=== PATIENT | male | born 1945 | race Two or more races ===

== ENCOUNTER 2020-07-09 16:31 | Inpatient (IN) | payer MEDICARE, OTHER ==
[~2020-07-09] VITALS: Ht 175.3 cm; Wt 67.0 kg
[2020-07-09] MEDS ORDERED: CASODEX50 MG ORAL (16:39)
[2020-07-09] MEDS ORDERED: GABAPENTIN400 MG ORAL (16:39)
[2020-07-09] MEDS ORDERED: ATORVASTATIN CA40 MG ORAL (16:39)
[2020-07-09] MEDS ORDERED: FLOMAX0.4 MG ORAL (16:39)
[2020-07-09] MEDS ORDERED: AMLODIPINE BESY10 MG ORAL (16:39)
[2020-07-09] MEDS ORDERED: SYNTHROID25 MCG ORAL (16:39)
[2020-07-09] MEDS ORDERED: PREDNISONE2.5 MG ORAL (16:39)
[2020-07-09] MEDS ORDERED: LISINOPRIL5 MG ORAL (16:39)
[2020-07-09] MEDS ORDERED: XARELTO10 MG ORAL (16:39)
[2020-07-09] MEDS ORDERED: OMEPRAZOLE40 M1 ORAL (16:39)
[2020-07-09 16:59] VITALS: BP 122/72
--- NOTE | 2020-07-09 17:00 | NUR ---
ED Nurse Note:pt. was BIBA from assist living with general weakness and not eating for 3 days, temp 99.8 rectal, skin is intact, VSS, pt. is responsive and A/Ox2, blood ,covid and urine sent to labs, pt. was placed on bus driver/monitor, given IV fluids
--- NOTE | 2020-07-09 17:11 | Emergency Room Report ---
History of Present Illness General Chief Complaint: Generalized Weakness Source: Patient Present Illness HPI This patient presents from assisted living facility. He has a history of metastatic prostate cancer per review of his face sheet from the assisted living facility. He has no specific complaints. However, he is unable to articulate a complicated history. However, he can answer yes or no questions. He is brought in by EMS who states he was brought in from an assisted living facility for generalized weakness for the past 4 days and not eating for the past 2 days. There are no other specific complaints. Allergies: Coded Allergies: No Known Allergies (Unverified , 07/09/20) COVID-19 Screening Contact w/high risk pt: No Experienced COVID-19 symptoms?: No COVID-19 Testing performed BUDDER: No Patient History Past Medical History: see triage record, HTN, other - Hypothyroid Social History: Denies: smoking, alcohol use, drug use Reviewed Nursing Documentation: PMH: Agreed; PSxH: Agreed Nursing Documentation-PMH Past Medical History: No History, Except For Hx Hypertension: Yes Hx Cancer: Yes - prostate CA, bph Hx Gastrointestinal Problems: Yes - GERD Hx Neurological Problems: Yes - paraplegia Review of Systems All Other Systems: negative except mentioned in HPI Physical Exam Vital Signs Date Time Temp Pulse Resp B/P (MAP) Pulse Ox O2 Delivery O2 Flow Rate FiO2 07/09/20 16:32 97.3 96 18 122/72 (89) 98 Room Air Sp02 EP Interpretation: reviewed, normal General Appearance: no apparent distress, alert, GCS 15, non-toxic, cachetic, Chronically Ill Head: normocephalic, atraumatic Eyes: bilateral eye normal inspection, bilateral eye PERRL ENT: hearing grossly normal, normal pharynx, no angioedema, normal voice Neck: normal inspection, full range of motion Respiratory: chest non-tender, lungs clear, normal breath sounds, no respiratory distress, no retraction, no accessory muscle use, speaking full sentences Cardiovascular #1: regular rate, rhythm, no edema Gastrointestinal: normal bowel sounds, soft, non-distended, no guarding, no rebound, tenderness - TTP over the Lower abdomen. Rectal: deferred Musculoskeletal: back normal, normal range of motion, gait/station normal, non-tender Neurologic: alert, responsive, other - PT communicates with hand motions. Psychiatric: mood/affect normal, no suicidal/homicidal ideation Medical Decision Making Diagnostic Impression: Primary Impression: Pyelonephritis Additional Impression: Hypokalemia ER Course This patient has known metastatic prostate cancer. He is cachectic and frail. He is found to have pyelonephritis and profound hypokalemia. The patient lives in an assisted care facility. I do not believe he could tolerate outpatient treatment. The patient has been not eating and cannot even tolerate oral potassium chloride here in the emergency department. He was given broad- spectrum antibiotics, IV potassium chloride and admitted for further evaluation and treatment. This patient was evaluated in the context of the global COVID-19 pandemic, which necessitated consideration that the patient might be at risk for infection with the [id number] virus that causes COVID-19. Institutional protocols and algorithms that pertain to the evaluation of patients at risk for COVID-19 and the state of rapid change based on information released by multiple regulatory bodies including the CDC and federal and state organizations. These policies and algorithms were followed during the patient's care in the ED. Laboratory Tests Test 07/09/20 17:20 07/09/20 18:35 White Blood Count 8.6 K/UL (4.8-10.8) Red Blood Count 4.49 M/UL (4.70-6.10) L Hemoglobin 13.5 G/DL (14.2-18.0) L Hematocrit 41.1 % (42.0-52.0) L Mean Corpuscular Volume 92 FL (80-99) Mean Corpuscular Hemoglobin 30.1 PG (27.0-31.0) Mean Corpuscular Hemoglobin Concent 32.9 G/DL (32.0-36.0) Red Cell Distribution Width 14.9 % (11.6-14.8) H Platelet Count 231 K/UL (150-450) Mean Platelet Volume 6.9 FL (6.5-10.1) Neutrophils (%) (Auto) 77.9 % (45.0-75.0) H Lymphocytes (%) (Auto) 13.5 % (20.0-45.0) L Monocytes (%) (Auto) 7.9 % (1.0-10.0) Eosinophils (%) (Auto) 0.1 % (0.0-3.0) Basophils (%) (Auto) 0.7 % (0.0-2.0) D-Dimer 2.15 mg/L FEU (0.00-0.49) H Urine Color Yellow Urine Appearance Slightly cloudy Urine pH 5 (4.5-8.0) Urine Specific [place] 1.020 (1.005-1.035) Urine Protein 1+ (NEGATIVE) H Urine Glucose (UA) Negative (NEGATIVE) Urine Ketones Negative (NEGATIVE) Urine Blood 3+ (NEGATIVE) H Urine Nitrite Negative (NEGATIVE) Urine Bilirubin Negative (NEGATIVE) Urine Urobilinogen 1 MG/DL (0.0-1.0) H Urine Leukocyte Esterase 2+ (NEGATIVE) H Urine RBC 5-10 /HPF (0 - 0) H Urine WBC 20-30 /HPF (0 - 0) H Urine Squamous Epithelial Cells None /LPF (NONE/OCC) Urine Bacteria Moderate /HPF (NONE) H Sodium Level 144 MMOL/L (136-145) Potassium Level 2.4 MMOL/L (3.5-5.1) *L Chloride Level 105 MMOL/L (98-107) Carbon Dioxide Level 30 MMOL/L (21-32) Anion Gap 10 mmol/L (5-15) Blood Urea Nitrogen 14 mg/dL (7-18) Creatinine 1.0 MG/DL (0.55-1.30) Estimated Glomerular Filtration Rate > 60 mL/min (>60) Glucose Level 149 MG/DL (74-106) H Lactic Acid Level 3.20 mmol/L (0.4-2.0) H Pending Calcium Level 12.6 MG/DL (8.5-10.1) H Ferritin 2404 NG/ML (8-388) H Total Bilirubin 1.6 MG/DL (0.2-1.0) H Direct Bilirubin 0.6 MG/DL (0.0-0.3) H Aspartate Amino Transferase (AST) 137 U/L (15-37) H Alanine Aminotransferase (ALT) 34 U/L (12-78) Alkaline Phosphatase 186 U/L (46-116) H Lactate Dehydrogenase 395 U/L (81-234) H Total Creatine Kinase 233 U/L (26-308) Creatine Kinase MB 0.7 NG/ML (0.0-3.6) Creatine Kinase MB Relative Index 0.3 Troponin I 0.000 ng/mL (0.000-0.056) C-Reactive Protein, Quantitative 19.7 mg/dL (0.00-0.90) H Total Protein 6.4 G/DL (6.4-8.2) Albumin 2.8 G/DL (3.4-5.0) L Globulin 3.6 g/dL Albumin/Globulin Ratio 0.8 (1.0-2.7) L Thyroid Stimulating Hormone (TSH) 2.914 uiU/mL (0.358-3.740) Free Thyroxine 1.32 NG/DL (0.76-1.46) Microbiology Date/Time Source Procedure Growth Status 07/09/20 17:25 Nasopharynx SARS-CoV-2 RdRp Gene Assay - Final Complete EKG Diagnostic Results Rate: tachycardiac Rhythm: other - S.tachycardia Other Impression NSST findings. No comparison EKG available. Rhythm Strip Diag. Results EP Interpretation: yes Rate: 100's Rhythm: no PVC's, no ectopy, other - S.tachycardia Chest X-Ray Diagnostic Results Chest X-Ray Diagnostic Results : Chest X-Ray Ordered: Yes # of Views/Limited/Complete: 1 View Indication: Other EP Interpretation: Yes Interpretation: no consolidation, no effusion, no pneumothorax, no acute cardiopulmonary disease Impression: No acute disease Electronically Signed by: Valentina Bocanegra DO Last Vital Signs Date Time Temp Pulse Resp B/P (MAP) Pulse Ox O2 Delivery O2 Flow Rate FiO2 07/09/20 16:32 97.3 96 18 122/72 (89) 98 Room Air Disposition: ADMITTED INPATIENT Condition: Serious Valentina Bocanegra DO Jul 09, 2020 17:11
[2020-07-09 17:41] LABS: BASOPHILS % (AUTO) 0.7 % (0.0-2.0); EOSINOPHILS % (AUTO) 0.1 % (0.0-3.0); HEMATOCRIT 41.1 % (42.0-52.0); HEMOGLOBIN 13.5 G/DL (14.2-18.0); LYMPHOCYTES % (AUTO) 13.5 % (20.0-45.0); MEAN CORPUSCULAR VOLUME 92 FL (80-99); MONOCYTES % (AUTO) 7.9 % (1.0-10.0); NEUTROPHILS % (AUTO) 77.9 % (45.0-75.0); PLATELET COUNT 231 K/UL (150-450); RED BLOOD COUNT 4.49 M/UL (4.70-6.10); RED CELL DISTRIBUTION WIDTH 14.9 % (11.6-14.8); WHITE BLOOD COUNT 8.6 K/UL (4.8-10.8)
[2020-07-09 17:56] LABS: BILIRUBIN, URINE NEGATIVE (NEGATIVE); GLUCOSE, URINE (UA) NEGATIVE (NEGATIVE); KETONES,URINE NEGATIVE (NEGATIVE); LEUKOCYTE ESTERASE ,URINE 2+ (NEGATIVE); NITRITE,URINE NEGATIVE (NEGATIVE); PH,URINE 5 (4.5-8.0); PROTEIN,URINE 1+ (NEGATIVE); UROBILINOGEN,URINE 1 MG/DL (0.0-1.0)
[2020-07-09 18:06] LABS: COLOR,URINE YELLOW
[2020-07-09 18:07] LABS: APPEARANCE,URINE SLIGHTLY CLOUDY
[2020-07-09 18:11] LABS: ALANINE AMINOTRANSFERASE 34 U/L (12-78); ALBUMIN 2.8 G/DL (3.4-5.0); ALBUMIN/GLOBULIN RATIO 0.8 (1.0-2.7); ALKALINE PHOSPHATASE 186 U/L (46-116); ANION GAP 10 mmol/L (5-15); ASPARTATE AMINO TRANSFERASE 137 U/L (15-37); BILIRUBIN,TOTAL 1.6 MG/DL (0.2-1.0); BLOOD UREA NITROGEN 14 mg/dL (7-18); CALCIUM 12.6 MG/DL (8.5-10.1); CARBON DIOXIDE 30 MMOL/L (21-32); CHLORIDE 105 MMOL/L (98-107); CKMB 0.7 NG/ML (0.0-3.6); CREATINE KINASE 233 U/L (26-308); LACTATE DEHYDROGENASE 395 U/L (81-234); SODIUM 144 MMOL/L (136-145)
[2020-07-09 18:18] LABS: FERRITIN 2404 NG/ML (8-388); POTASSIUM 2.4 MMOL/L (3.5-5.1)
[2020-07-09 18:20] LABS: BILIRUBIN,DIRECT 0.6 MG/DL (0.0-0.3)
--- NOTE | 2020-07-09 18:22 | NUR ---
ED Nurse Note:called labs to draw lactic reflax, they said ok
[2020-07-09] MEDS ORDERED: Meropenem 1 GM in NS 55 ML IVPB ONE (18:45)
--- NOTE | 2020-07-09 19:10 | NUR ---
ED Nurse Note: Report received from LAURITA Morel. Patient is resting in bed, NAD noted. Breathing is normal and unlabored at this time. Safety measures met; will continue to monitor. VSS.
[2020-07-09 19:30] VITALS: BP 143/77
--- NOTE | 2020-07-09 20:00 | NUR ---
ED Nurse Note: Report given to LAURITA Olivarez.
[2020-07-09] MEDS ORDERED: Miralax 17gm pkt ORAL PRN (20:30)
[2020-07-09] MEDS ORDERED: Albuterol/Ipratropium 3ml neb HHN PRN (20:30)
--- NOTE | 2020-07-09 20:30 | NUR ---
ED Nurse Note: Patient is stable for transfer to tele unit at this time. He is awake and alert, breathing is normal at time of ED departure with stable vitals. Patient IVs are patent and intact. Patient taken to unit with IV potassium infusing and endorsed plan to LAURITA Olivarez. All belongings sent with patient. He is in no acute distress. Pt transferred to tele bed without complication.
--- NOTE | 2020-07-09 20:30 | NUR ---
NURSE NOTES: Report received from [place] ER nurse, Patient being admitted to [facility] for Pyelonephritis and hypokalemia. Patient is non ambulatory d/t paraplegia. Denies pain. Alert and oriented x 1 to 2 unable to understand what patient is saying at this time. Appears to have garbled speech and disoriented and confused. ER nurse states that Urine also positive for bacteria. Patient currently sinus tachy at 102 BPM. BP 118/68, Resp 22, Temp 97.8 O2Sat 97% on room air. Call light placed with in reach and provided instruction on fall precautions. Patient nods yes to demonstrate understanding. Bed at lowest position locked with side rails, bed alarm also activated. MRSA, VRE, CRE pending per ER nurse. Will contact Dr. Bonilla for further orders.
--- NOTE | 2020-07-09 20:53 | History & Physical ---
History and Physical History & Physicial job# [id number] Mark Bonilla MD Jul 09, 2020 20:53
[2020-07-09] MEDS ORDERED: Heparin 5000 units/ml inj SUBQ SCH (21:00)
--- NOTE | 2020-07-09 21:00 | NUR ---
Dr. Bonilla came to see patient and new admit orders noted and carried out. Continue all home medication except for Amlodipine d/t patient's BP stable and on other BP medication. Heparin DC since patient is taking anticoagulant daily. Will continue with plan of care.
[2020-07-09] MEDS: Cefepime HCl 2 GM in D5W 110 ML IV SCH (22:44)
[2020-07-09] MEDS: D5 1/2NS w/KCl 20mEq 1,000 ML IV SCH (22:44)
[2020-07-09] MEDS: Vancomycin 750 MG in NS 275 ML IVPB SCH (22:45)
[2020-07-10] VITALS: BP 118/75
--- NOTE | 2020-07-10 | History and Physical Report ---
DATE OF ADMISSION: 07/09/2020 CHIEF COMPLAINT: Altered mental status, severe weakness. HISTORY OF PRESENT ILLNESS: This is a 75-year-old gentleman with past medical history significant for metastatic prostate cancer, history of GERD, paraplegia, hypertension, BPH, hypothyroidism, and dyslipidemia, who presented to the emergency department from [facility] after he was noted to have generalized weakness for four days and decreased oral intake for two days. No fever, chills, nausea, vomiting, diarrhea, or constipation was reported. History is very limited secondary to the patient's status. The patient is not a good historian and answers questions yes or no, but in a slurred speech. The patient denies any headache or chest pain. Shortly after initial evaluation in the emergency department, the patient was noted to have a potassium of 2.4 and urinalysis, many bacteria, +2 leukocytes, and subsequently the patient was admitted to the hospital with hypokalemia and sepsis secondary to urinary tract infection. PAST MEDICAL HISTORY AND PAST SURGICAL HISTORY: As above, history of metastatic prostate cancer, history of gastroesophageal reflux disease, paraplegia, hypertension, BPH, hypothyroidism, and dyslipidemia. MEDICATIONS: Significant at the senior care significant for Norvasc 10 mg daily, atorvastatin 40 mg daily, Casodex 50 daily, gabapentin 400 mg four times a day, levothyroxine 50 mcg daily, lisinopril 10 mg daily, omeprazole 40 mg daily, prednisone 5 mg daily, Xarelto 20 mg p.o. daily, and Flomax 0.4 mg p.o. daily. ALLERGIES: No known drug allergies. SOCIAL HISTORY: No smoking, alcohol, or drugs at this time. Assisted living resident. FAMILY HISTORY: Noncontributory. REVIEW OF SYSTEMS: Very limited secondary to the patient's status. He is a poor historian. No fever or chills. No nausea or vomiting was reported. No bright red blood per rectum. No fall or head trauma. PHYSICAL EXAMINATION: VITAL SIGNS: On admission from the emergency department, temperature 97.3, pulse of 96, respirations 18, and blood pressure 122/72. GENERAL: The patient is awake and responsive, but very chronically ill-appearing. HEAD AND NECK: Pupils are equal and reactive to light. Extraocular movements are intact. Neck was supple. No JVD. LUNGS: Good air entry. No wheezing or rales. Decreased air in bases. Coarse breath sounds occasionally. ABDOMEN: Soft, nondistended, and nontender. Positive bowel sounds. EXTREMITIES: No cyanosis, clubbing or edema. NEUROLOGIC: Cranial nerves II through XII grossly intact. The patient is moving upper extremities. Lower extremities weaker 1/5 strength. SKIN: He has a tattoo on the upper extremity as well as trunk area. LABORATORY DATA: On admission from the emergency department, WBC of 8.6, hemoglobin 13, hematocrit 41, platelets 231,000. Sodium 144, potassium 2.4, chloride 105, bicarb 30, BUN 14, creatinine 1.0, GFR greater than 60. Glucose is 146. Lactic acid is 3.20, repeat one was 3.70. Calcium is 12.6. Ferritin . Total bilirubin of 1.6, direct bilirubin of 0.6, AST of 137, ALT of 34, alkaline phosphatase was 186. Lactate dehydrogenase is 395. Troponin is 0.00. TSH is 2.914, free T4 is 1.32. D-dimer is 2.15. UA is +1 protein, +3 blood, +2 leukocytes, 5 to 10 rbc, 20 to 30 wbc, moderate bacteria. COVID-19 test, rapid test is negative. ASSESSMENT: 1. Sepsis secondary to urinary tract infection. 2. Hypokalemia. 3. Severe dehydration and prerenal azotemia. 4. Metastatic prostate cancer. 5. Gastroesophageal reflux disease. 6. Paraplegia. 7. Hypertension. 8. BPH. 9. Hypothyroidism. 10. Dyslipidemia. PLAN: Admit the patient to the monitored unit. Continue laboratory as well as culture. Broad-spectrum antibiotic with vancomycin and cefepime. At this time, code status is Full Code. We will monitor lactic acid and we will start the patient on IV hydration. Mark Bonilla M.D. DR: JOHN JOB#: [id number] CC:
[2020-07-10 04:00] VITALS: BP 111/61
[2020-07-10 07:38] LABS: BASOPHILS % (AUTO) 0.3 % (0.0-2.0); EOSINOPHILS % (AUTO) 0.4 % (0.0-3.0); HEMATOCRIT 35.9 % (42.0-52.0); HEMOGLOBIN 11.9 G/DL (14.2-18.0); LYMPHOCYTES % (AUTO) 14.6 % (20.0-45.0); MEAN CORPUSCULAR VOLUME 92 FL (80-99); MONOCYTES % (AUTO) 8.2 % (1.0-10.0); NEUTROPHILS % (AUTO) 76.5 % (45.0-75.0); PLATELET COUNT 209 K/UL (150-450); RED BLOOD COUNT 3.91 M/UL (4.70-6.10); RED CELL DISTRIBUTION WIDTH 15.1 % (11.6-14.8); WHITE BLOOD COUNT 7.7 K/UL (4.8-10.8)
--- NOTE | 2020-07-10 07:41 | NUR ---
HAND-OFF: Report given to Clifford RN, Pt stable alert and oriented x2 to 3.
[2020-07-10 07:59] LABS: PHOSPHORUS 2.5 MG/DL (2.5-4.9)
[2020-07-10 08:00] VITALS: BP 108/70
[2020-07-10 08:09] LABS: ALANINE AMINOTRANSFERASE 27 U/L (12-78); ALBUMIN 2.4 G/DL (3.4-5.0); ALBUMIN/GLOBULIN RATIO 0.7 (1.0-2.7); ALKALINE PHOSPHATASE 155 U/L (46-116); ASPARTATE AMINO TRANSFERASE 133 U/L (15-37); BILIRUBIN,TOTAL 1.2 MG/DL (0.2-1.0); BLOOD UREA NITROGEN 13 mg/dL (7-18); CALCIUM 11.1 MG/DL (8.5-10.1); CARBON DIOXIDE 28 MMOL/L (21-32); CHLORIDE 109 MMOL/L (98-107); CREATININE 0.9 MG/DL (0.55-1.30); SODIUM 146 MMOL/L (136-145)
[2020-07-10 08:31] LABS: BILIRUBIN,DIRECT 0.4 MG/DL (0.0-0.3); POTASSIUM 2.5 MMOL/L (3.5-5.1)
[2020-07-10] MEDS: Lisinopril 10mg tab ORAL SCH (08:55)
[2020-07-10] MEDS: Xarelto 10mg tab ORAL SCH (08:55)
[2020-07-10] MEDS: Tamsulosin 0.4mg cap ORAL SCH (08:55)
[2020-07-10] MEDS: Cefepime HCl 2 GM in D5W 110 ML IV SCH ×2 (08:58→21:00)
[2020-07-10] MEDS: Bicalutamide 50mg tab ORAL SCH (08:58)
[2020-07-10] MEDS: Vancomycin 750 MG in NS 275 ML IVPB SCH ×2 (10:00→22:00)
--- NOTE | 2020-07-10 11:19 | NUR ---
NURSE NOTES: Received patient in bed. Awake, Alert to self. On room air, respirations unlabored. Patient denies pain. Heart monitor on. IV in the Right wrist and Left wrist, infusing IVF as ordered. Patient is a high fall risk d/t Roche fall score of 55. Patient placed close to the nurse's station for safety and close monitoring, yellow gown on, yellow socks on, bed alarm placed on high sensitivity, side rails up x2, bed at the lowest position. Call light within reach - unable to return demonstration. CN and DIRECTOR OF ALUMNI RELATIONS made aware.
--- NOTE | 2020-07-10 11:26 | NUR ---
NURSE NOTES: Received a call from Harika from [facility]. RN informed that GPS tracker on patient's ankle is low on battery. Tracker needs to be charged and a foam charger will be brought. [phone].
[2020-07-10] MEDS: D5 1/2NS w/KCl 20mEq 1,000 ML IV SCH (11:57)
[2020-07-10 12:00] VITALS: BP 137/67
--- NOTE | 2020-07-10 12:05 | NUR ---
NURSE NOTES: Patient refusing PO potassium. Patient is noncooperative. Attempted multiple times.
--- NOTE | 2020-07-10 12:32 | Consultation ---
History of Present Illness General Date patient seen: Jul 10, 2020 Chief Complaint: Generalized Weakness Present Illness HPI 75 y/o M with hx of HTN, BPH, GERD, HLD, paraplegia, hypothyroidism, metastatic Prostate CA, [facility] resident (Talisha Melvin) presented to ED on 07/09/20 with 4 days of weakness and not eating for 2 days Denied f/c, n/v/d, DELUCA, chest pain. Allergies: Coded Allergies: No Known Allergies (Unverified , 07/09/20) Medication History Scheduled Amlodipine Besylate* (Amlodipine Besylate*), 10 MG ORAL DAILY, (Reported) Atorvastatin Calcium* (Atorvastatin Calcium*), 40 MG ORAL BEDTIME, (Reported) Bicalutamide (Casodex), 50 MG ORAL DAILY, (Reported) Gabapentin* (Gabapentin*), 400 MG ORAL QID, (Reported) Levothyroxine Sodium* (Synthroid*), 50 MCG ORAL DAILY, (Reported) Lisinopril (Lisinopril*), 10 MG ORAL DAILY, (Reported) Omeprazole (Omeprazole), 40 MG ORAL DAILY, (Reported) Prednisone* (Prednisone*), 5 MG ORAL DAILY, (Reported) Rivaroxaban (Xarelto*), 20 MG ORAL DAILY, (Reported) Tamsulosin HCl (Flomax), 0.4 MG ORAL DAILY, (Reported) Patient History Healthcare decision maker N Resuscitation status Advanced Directive on File Patient History Narrative Pmhx: as above Shx: Denies: smoking, alcohol use, drug use Fhx: non contributory Review of Systems All Other Systems: negative except mentioned in HPI Physical Exam Physical Exam Narrative General Appearance: no apparent distress Head: normocephalic, atraumatic Eyes: bilateral eye normal inspection, bilateral eye PERRL ENT: hearing grossly normal, normal pharynx, no angioedema, normal voice Neck: normal inspection, full range of motion Respiratory: chest non-tender, lungs clear, normal breath sounds, no respiratory distress, no retraction, no accessory muscle use, speaking full sentences Cardiovascular #1: regular rate, rhythm, no edema Gastrointestinal: normal bowel sounds, soft, non-distended, no guarding, no rebound, tenderness - TTP over the Lower abdomen. Musculoskeletal: back normal, normal range of motion, gait/station normal, non- tender Last 24 Hour Vital Signs Date Time Temp Pulse Resp B/P (MAP) Pulse Ox O2 Delivery O2 Flow Rate FiO2 07/10/20 09:00 Room Air 07/10/20 08:55 108/70 07/10/20 08:00 99 07/10/20 08:00 96.4 97 20 108/70 (83) 97 07/10/20 04:00 97.7 93 22 111/61 (78) 97 07/10/20 04:00 92 07/10/20 00:00 90 07/10/20 00:00 97.7 101 22 118/75 (89) 97 07/09/20 22:59 Room Air 07/09/20 21:30 102 07/09/20 20:30 99.1 101 20 123/74 97 Room Air 07/09/20 19:30 99.8 106 18 143/77 96 Room Air 07/09/20 17:00 111 18 Room Air 07/09/20 16:59 99.8 111 18 122/72 98 Room Air 07/09/20 16:32 97.3 96 18 122/72 (89) 98 Room Air Intake and Output 07/09/20 07/10/20 19:00 07:00 Intake Total 400 ml Balance 400 ml Intake Other 400 ml # Voids 1 Laboratory Tests Test 07/09/20 17:20 07/09/20 18:35 07/10/20 06:01 White Blood Count 8.6 K/UL (4.8-10.8) 7.7 K/UL (4.8-10.8) Red Blood Count 4.49 M/UL (4.70-6.10) L 3.91 M/UL (4.70-6.10) L Hemoglobin 13.5 G/DL (14.2-18.0) L 11.9 G/DL (14.2-18.0) L Hematocrit 41.1 % (42.0-52.0) L 35.9 % (42.0-52.0) L Mean Corpuscular Volume 92 FL (80-99) 92 FL (80-99) Mean Corpuscular Hemoglobin 30.1 PG (27.0-31.0) 30.5 PG (27.0-31.0) Mean Corpuscular Hemoglobin Concent 32.9 G/DL (32.0-36.0) 33.2 G/DL (32.0-36.0) Red Cell Distribution Width 14.9 % (11.6-14.8) H 15.1 % (11.6-14.8) H Platelet Count 231 K/UL (150-450) 209 K/UL (150-450) Mean Platelet Volume 6.9 FL (6.5-10.1) 7.4 FL (6.5-10.1) Neutrophils (%) (Auto) 77.9 % (45.0-75.0) H 76.5 % (45.0-75.0) H Lymphocytes (%) (Auto) 13.5 % (20.0-45.0) L 14.6 % (20.0-45.0) L Monocytes (%) (Auto) 7.9 % (1.0-10.0) 8.2 % (1.0-10.0) Eosinophils (%) (Auto) 0.1 % (0.0-3.0) 0.4 % (0.0-3.0) Basophils (%) (Auto) 0.7 % (0.0-2.0) 0.3 % (0.0-2.0) D-Dimer 2.15 mg/L FEU (0.00-0.49) H Urine Color Yellow Urine Appearance Slightly cloudy Urine pH 5 (4.5-8.0) Urine Specific [place] 1.020 (1.005-1.035) Urine Protein 1+ (NEGATIVE) H Urine Glucose (UA) Negative (NEGATIVE) Urine Ketones Negative (NEGATIVE) Urine Blood 3+ (NEGATIVE) H Urine Nitrite Negative (NEGATIVE) Urine Bilirubin Negative (NEGATIVE) Urine Urobilinogen 1 MG/DL (0.0-1.0) H Urine Leukocyte Esterase 2+ (NEGATIVE) H Urine RBC 5-10 /HPF (0 - 0) H Urine WBC 20-30 /HPF (0 - 0) H Urine Squamous Epithelial Cells None /LPF (NONE/OCC) Urine Bacteria Moderate /HPF (NONE) H Sodium Level 144 MMOL/L (136-145) 146 MMOL/L (136-145) H Potassium Level 2.4 MMOL/L (3.5-5.1) *L 2.5 MMOL/L (3.5-5.1) *L Chloride Level 105 MMOL/L (98-107) 109 MMOL/L (98-107) H Carbon Dioxide Level 30 MMOL/L (21-32) 28 MMOL/L (21-32) Anion Gap 10 mmol/L (5-15) Blood Urea Nitrogen 14 mg/dL (7-18) 13 mg/dL (7-18) Creatinine 1.0 MG/DL (0.55-1.30) 0.9 MG/DL (0.55-1.30) Estimat Glomerular Filtration Rate > 60 mL/min (>60) > 60 mL/min (>60) Glucose Level 149 MG/DL (74-106) H 117 MG/DL (74-106) H Lactic Acid Level 3.20 mmol/L (0.4-2.0) H 3.70 mmol/L (0.66-2.22) H Calcium Level 12.6 MG/DL (8.5-10.1) H 11.1 MG/DL (8.5-10.1) H Ferritin 2404 NG/ML (8-388) H Total Bilirubin 1.6 MG/DL (0.2-1.0) H 1.2 MG/DL (0.2-1.0) H Direct Bilirubin 0.6 MG/DL (0.0-0.3) H 0.4 MG/DL (0.0-0.3) H Aspartate Amino Transf (AST/SGOT) 137 U/L (15-37) H 133 U/L (15-37) H Alanine Aminotransferase (ALT/SGPT) 34 U/L (12-78) 27 U/L (12-78) Alkaline Phosphatase 186 U/L (46-116) H 155 U/L (46-116) H Lactate Dehydrogenase 395 U/L (81-234) H Total Creatine Kinase 233 U/L (26-308) Creatine Kinase MB 0.7 NG/ML (0.0-3.6) Creatine Kinase MB Relative Index 0.3 Troponin I 0.000 ng/mL (0.000-0.056) 0.000 ng/mL (0.000-0.056) C-Reactive Protein, Quantitative 19.7 mg/dL (0.00-0.90) H Total Protein 6.4 G/DL (6.4-8.2) 5.7 G/DL (6.4-8.2) L Albumin 2.8 G/DL (3.4-5.0) L 2.4 G/DL (3.4-5.0) L Globulin 3.6 g/dL 3.3 g/dL Albumin/Globulin Ratio 0.8 (1.0-2.7) L 0.7 (1.0-2.7) L Thyroid Stimulating Hormone (TSH) 2.914 uiU/mL (0.358-3.740) Free Thyroxine 1.32 NG/DL (0.76-1.46) Phosphorus Level 2.5 MG/DL (2.5-4.9) Magnesium Level 1.8 MG/DL (1.8-2.4) Microbiology Date/Time Source Procedure Growth Status 07/09/20 19:00 Rectum Received 07/09/20 17:25 Nasopharynx SARS-CoV-2 RdRp Gene Assay - Final Complete Height (Feet): 5 Height (Inches): 9.00 Weight (Pounds): 149 Medications Current Medications Medications (Trade) Dose Ordered Sig/Anitra Route PRN Reason Start Time Stop Time Status Last Admin Dose Admin Acetaminophen (Tylenol) 650 mg Q4H PRN ORAL fever 07/09/20 20:30 08/08/20 20:29 Albuterol/ Ipratropium (Albuterol/ Ipratropium) 3 ml Q4H PRN HHN Shortness of Breath 07/09/20 20:30 07/14/20 20:29 Atorvastatin Calcium (Lipitor) 40 mg BEDTIME ORAL 07/10/20 21:00 10/08/20 20:59 Bicalutamide (Casodex) 50 mg DAILY ORAL 07/10/20 09:00 07/15/20 08:59 07/10/20 08:58 Cefepime HCl 2 gm/ Dextrose 110 ml @ 220 mls/hr EVERY 12 HOURS IV 07/09/20 21:00 07/16/20 20:59 07/10/20 08:58 Dextrose/ Electrolytes 1,000 ml @ 75 mls/hr [id number] IV 07/09/20 22:00 08/08/20 21:59 07/10/20 11:57 Gabapentin (Neurontin) 400 mg QID ORAL 07/10/20 09:00 08/09/20 08:59 07/10/20 08:55 Levothyroxine Sodium (Synthroid) 50 mcg ACBREAKFAST ORAL 07/10/20 06:30 08/09/20 06:29 07/10/20 06:38 Lisinopril (ZestriL) 10 mg DAILY ORAL 07/10/20 09:00 08/09/20 08:59 07/10/20 08:55 Ondansetron HCl (Zofran) 4 mg Q6H PRN IVP Nausea & Vomiting 07/09/20 20:30 08/08/20 20:29 Pantoprazole (Protonix) 40 mg DAILY ORAL 07/10/20 09:00 08/09/20 08:59 07/10/20 08:55 Polyethylene Glycol (Miralax) 17 gm DAILYPRN PRN ORAL Constipation 07/09/20 20:30 08/08/20 20:29 Potassium Chloride (K-Dur) 40 meq Q8H ORAL 07/10/20 12:00 07/10/20 20:01 Rivaroxaban (Xarelto) 20 mg DAILY ORAL 07/10/20 09:00 10/08/20 08:59 07/10/20 08:55 Tamsulosin HCl (Flomax) 0.4 mg DAILY ORAL 07/10/20 09:00 08/09/20 08:59 07/10/20 08:55 Temazepam (Restoril) 15 mg HSPRN PRN ORAL Insomnia 07/09/20 20:30 07/16/20 20:29 Vancomycin HCl 750 mg/Sodium Chloride 275 ml @ 183.299 mls/hr Q12H IVPB 07/09/20 22:00 07/14/20 21:59 07/10/20 10:00 Assessment/Plan Assessment/Plan: Abx: Meropenem x1 07/09 IV Vancomycin 07/09- Cefepime 07/09- Assessment: COVID19 neg x (07/09 rapid COVID PCR neg) -CXR: report pending; per ED documentation: no consolidation, no effusion, no pneumothorax, no acute cardiopulmonary disease Sepsis UTI -u/a wbc 20-30, nit neg, leuk +2; ucx p -Bcx p Afebrile No leukocytosis Hypernatremia Hypokalemia HTN BPH GERD HLD paraplegia hypothyroidism metastatic Prostate CA [facility] resident (Talisha Melvin) Plan: -Continue empiric Cefepime #2 pending ucx -Continue empiric IV Vancomycin #2 for now pending Bcx -if prelim Bcx are neg, will dc -f/u cx -Monitor CBC/CMP, temperatures -f/u CXR -aspiration precautions Thank you for consulting [facility]. Will continue to follow along with you. Discussed with LAURITA. Bonnie Nixon M.D. Jul 10, 2020 12:32
--- NOTE | 2020-07-10 12:38 | Consultation ---
History of Present Illness General Date patient seen: Jul 10, 2020 Chief Complaint: Generalized Weakness Present Illness HPI 75 year old male with hx of prostate cancer, BPH, HTN, assisted living resident presented to ER with CC of generalized weakness for the past 4 days and not e ating for the past 2 days. There are no other specific complaints. Pt was found to be severely hypokalemic with pyuria and possible pyelonephritis. He is admitted for further management. Allergies: Coded Allergies: No Known Allergies (Unverified , 07/09/20) Medication History Scheduled Amlodipine Besylate* (Amlodipine Besylate*), 10 MG ORAL DAILY, (Reported) Atorvastatin Calcium* (Atorvastatin Calcium*), 40 MG ORAL BEDTIME, (Reported) Bicalutamide (Casodex), 50 MG ORAL DAILY, (Reported) Gabapentin* (Gabapentin*), 400 MG ORAL QID, (Reported) Levothyroxine Sodium* (Synthroid*), 50 MCG ORAL DAILY, (Reported) Lisinopril (Lisinopril*), 10 MG ORAL DAILY, (Reported) Omeprazole (Omeprazole), 40 MG ORAL DAILY, (Reported) Prednisone* (Prednisone*), 5 MG ORAL DAILY, (Reported) Rivaroxaban (Xarelto*), 20 MG ORAL DAILY, (Reported) Tamsulosin HCl (Flomax), 0.4 MG ORAL DAILY, (Reported) Patient History Healthcare decision maker N Resuscitation status Advanced Directive on File Past Medical/Surgical History Past Medical/Surgical History: (1) Prostate cancer (2) History of hypertension Review of Systems All Other Systems: negative except mentioned in HPI Physical Exam General Appearance: cachetic, thin Lines, tubes and drains: peripheral HEENT: normocephalic, atraumatic Neck: non-tender, normal alignment Respiratory/Chest: chest wall non-tender, lungs clear Breasts: no masses Cardiovascular/Chest: normal rate Abdomen: normal bowel sounds, non tender Genitourinary/Rectal: normal genital exam Skin Exam: normal pigmentation Last 24 Hour Vital Signs Date Time Temp Pulse Resp B/P (MAP) Pulse Ox O2 Delivery O2 Flow Rate FiO2 07/10/20 09:00 Room Air 07/10/20 08:55 108/70 07/10/20 08:00 99 07/10/20 08:00 96.4 97 20 108/70 (83) 97 07/10/20 04:00 97.7 93 22 111/61 (78) 97 07/10/20 04:00 92 07/10/20 00:00 90 07/10/20 00:00 97.7 101 22 118/75 (89) 97 07/09/20 22:59 Room Air 07/09/20 21:30 102 07/09/20 20:30 99.1 101 20 123/74 97 Room Air 07/09/20 19:30 99.8 106 18 143/77 96 Room Air 07/09/20 17:00 111 18 Room Air 07/09/20 16:59 99.8 111 18 122/72 98 Room Air 07/09/20 16:32 97.3 96 18 122/72 (89) 98 Room Air Intake and Output 07/09/20 07/10/20 19:00 07:00 Intake Total 400 ml Balance 400 ml Intake Other 400 ml # Voids 1 Laboratory Tests Test 07/09/20 17:20 07/09/20 18:35 07/10/20 06:01 White Blood Count 8.6 K/UL (4.8-10.8) 7.7 K/UL (4.8-10.8) Red Blood Count 4.49 M/UL (4.70-6.10) L 3.91 M/UL (4.70-6.10) L Hemoglobin 13.5 G/DL (14.2-18.0) L 11.9 G/DL (14.2-18.0) L Hematocrit 41.1 % (42.0-52.0) L 35.9 % (42.0-52.0) L Mean Corpuscular Volume 92 FL (80-99) 92 FL (80-99) Mean Corpuscular Hemoglobin 30.1 PG (27.0-31.0) 30.5 PG (27.0-31.0) Mean Corpuscular Hemoglobin Concent 32.9 G/DL (32.0-36.0) 33.2 G/DL (32.0-36.0) Red Cell Distribution Width 14.9 % (11.6-14.8) H 15.1 % (11.6-14.8) H Platelet Count 231 K/UL (150-450) 209 K/UL (150-450) Mean Platelet Volume 6.9 FL (6.5-10.1) 7.4 FL (6.5-10.1) Neutrophils (%) (Auto) 77.9 % (45.0-75.0) H 76.5 % (45.0-75.0) H Lymphocytes (%) (Auto) 13.5 % (20.0-45.0) L 14.6 % (20.0-45.0) L Monocytes (%) (Auto) 7.9 % (1.0-10.0) 8.2 % (1.0-10.0) Eosinophils (%) (Auto) 0.1 % (0.0-3.0) 0.4 % (0.0-3.0) Basophils (%) (Auto) 0.7 % (0.0-2.0) 0.3 % (0.0-2.0) D-Dimer 2.15 mg/L FEU (0.00-0.49) H Urine Color Yellow Urine Appearance Slightly cloudy Urine pH 5 (4.5-8.0) Urine Specific [place] 1.020 (1.005-1.035) Urine Protein 1+ (NEGATIVE) H Urine Glucose (UA) Negative (NEGATIVE) Urine Ketones Negative (NEGATIVE) Urine Blood 3+ (NEGATIVE) H Urine Nitrite Negative (NEGATIVE) Urine Bilirubin Negative (NEGATIVE) Urine Urobilinogen 1 MG/DL (0.0-1.0) H Urine Leukocyte Esterase 2+ (NEGATIVE) H Urine RBC 5-10 /HPF (0 - 0) H Urine WBC 20-30 /HPF (0 - 0) H Urine Squamous Epithelial Cells None /LPF (NONE/OCC) Urine Bacteria Moderate /HPF (NONE) H Sodium Level 144 MMOL/L (136-145) 146 MMOL/L (136-145) H Potassium Level 2.4 MMOL/L (3.5-5.1) *L 2.5 MMOL/L (3.5-5.1) *L Chloride Level 105 MMOL/L (98-107) 109 MMOL/L (98-107) H Carbon Dioxide Level 30 MMOL/L (21-32) 28 MMOL/L (21-32) Anion Gap 10 mmol/L (5-15) Blood Urea Nitrogen 14 mg/dL (7-18) 13 mg/dL (7-18) Creatinine 1.0 MG/DL (0.55-1.30) 0.9 MG/DL (0.55-1.30) Estimat Glomerular Filtration Rate > 60 mL/min (>60) > 60 mL/min (>60) Glucose Level 149 MG/DL (74-106) H 117 MG/DL (74-106) H Lactic Acid Level 3.20 mmol/L (0.4-2.0) H 3.70 mmol/L (0.66-2.22) H Calcium Level 12.6 MG/DL (8.5-10.1) H 11.1 MG/DL (8.5-10.1) H Ferritin 2404 NG/ML (8-388) H Total Bilirubin 1.6 MG/DL (0.2-1.0) H 1.2 MG/DL (0.2-1.0) H Direct Bilirubin 0.6 MG/DL (0.0-0.3) H 0.4 MG/DL (0.0-0.3) H Aspartate Amino Transf (AST/SGOT) 137 U/L (15-37) H 133 U/L (15-37) H Alanine Aminotransferase (ALT/SGPT) 34 U/L (12-78) 27 U/L (12-78) Alkaline Phosphatase 186 U/L (46-116) H 155 U/L (46-116) H Lactate Dehydrogenase 395 U/L (81-234) H Total Creatine Kinase 233 U/L (26-308) Creatine Kinase MB 0.7 NG/ML (0.0-3.6) Creatine Kinase MB Relative Index 0.3 Troponin I 0.000 ng/mL (0.000-0.056) 0.000 ng/mL (0.000-0.056) C-Reactive Protein, Quantitative 19.7 mg/dL (0.00-0.90) H Total Protein 6.4 G/DL (6.4-8.2) 5.7 G/DL (6.4-8.2) L Albumin 2.8 G/DL (3.4-5.0) L 2.4 G/DL (3.4-5.0) L Globulin 3.6 g/dL 3.3 g/dL Albumin/Globulin Ratio 0.8 (1.0-2.7) L 0.7 (1.0-2.7) L Thyroid Stimulating Hormone (TSH) 2.914 uiU/mL (0.358-3.740) Free Thyroxine 1.32 NG/DL (0.76-1.46) Phosphorus Level 2.5 MG/DL (2.5-4.9) Magnesium Level 1.8 MG/DL (1.8-2.4) Microbiology Date/Time Source Procedure Growth Status 07/09/20 19:00 Rectum Received 07/09/20 17:25 Nasopharynx SARS-CoV-2 RdRp Gene Assay - Final Complete Height (Feet): 5 Height (Inches): 9.00 Weight (Pounds): 149 Medications Current Medications Medications (Trade) Dose Ordered Sig/Anitra Route PRN Reason Start Time Stop Time Status Last Admin Dose Admin Acetaminophen (Tylenol) 650 mg Q4H PRN ORAL fever 07/09/20 20:30 08/08/20 20:29 Albuterol/ Ipratropium (Albuterol/ Ipratropium) 3 ml Q4H PRN HHN Shortness of Breath 07/09/20 20:30 07/14/20 20:29 Atorvastatin Calcium (Lipitor) 40 mg BEDTIME ORAL 07/10/20 21:00 10/08/20 20:59 Bicalutamide (Casodex) 50 mg DAILY ORAL 07/10/20 09:00 07/15/20 08:59 07/10/20 08:58 Cefepime HCl 2 gm/ Dextrose 110 ml @ 220 mls/hr EVERY 12 HOURS IV 07/09/20 21:00 07/16/20 20:59 07/10/20 08:58 Dextrose/ Electrolytes 1,000 ml @ 75 mls/hr [id number] IV 07/09/20 22:00 08/08/20 21:59 07/10/20 11:57 Gabapentin (Neurontin) 400 mg QID ORAL 07/10/20 09:00 08/09/20 08:59 07/10/20 08:55 Levothyroxine Sodium (Synthroid) 50 mcg ACBREAKFAST ORAL 07/10/20 06:30 08/09/20 06:29 07/10/20 06:38 Lisinopril (ZestriL) 10 mg DAILY ORAL 07/10/20 09:00 08/09/20 08:59 07/10/20 08:55 Ondansetron HCl (Zofran) 4 mg Q6H PRN IVP Nausea & Vomiting 07/09/20 20:30 08/08/20 20:29 Pantoprazole (Protonix) 40 mg DAILY ORAL 07/10/20 09:00 08/09/20 08:59 07/10/20 08:55 Polyethylene Glycol (Miralax) 17 gm DAILYPRN PRN ORAL Constipation 07/09/20 20:30 08/08/20 20:29 Potassium Chloride (K-Dur) 40 meq Q8H ORAL 07/10/20 12:00 07/10/20 20:01 Rivaroxaban (Xarelto) 20 mg DAILY ORAL 07/10/20 09:00 10/08/20 08:59 07/10/20 08:55 Tamsulosin HCl (Flomax) 0.4 mg DAILY ORAL 07/10/20 09:00 08/09/20 08:59 07/10/20 08:55 Temazepam (Restoril) 15 mg HSPRN PRN ORAL Insomnia 07/09/20 20:30 07/16/20 20:29 Vancomycin HCl 750 mg/Sodium Chloride 275 ml @ 183.299 mls/hr Q12H IVPB 07/09/20 22:00 07/14/20 21:59 07/10/20 10:00 Assessment/Plan Problem List: (1) Pyelonephritis ICD Codes: N12 - Tubulo-interstitial nephritis, not specified as acute or chronic SNOMED: 72920393 (2) Hypokalemia ICD Codes: E87.6 - Hypokalemia SNOMED: 39573207 (3) Protein-calorie malnutrition, severe ICD Codes: E43 - Unspecified severe protein-calorie malnutrition SNOMED: 297228135, 877332898, 198493149 (4) Prostate cancer ICD Codes: C61 - Malignant neoplasm of prostate SNOMED: 112370202 (5) History of hypertension ICD Codes: Z86.79 - Personal history of other diseases of the circulatory system SNOMED: 503457573 Assessment/Plan: [place] cultures iv abx IV fluids supplement K monitor BP f/u on PSA symptomatic treatment dvt prophylaxis. Judy Oliver MD Jul 10, 2020 12:38
--- NOTE | 2020-07-10 13:50 | NUR ---
NURSE NOTES: Patient found with blood on bed sheets and gown. IV site in Right wrist and Left wrist removed by patient. Patient stating "I need to go get a seven up soda." Patient appears confused and non-cooperative. Patient refuses to be repositioned. Patient refuses water and juice and food. Patient states "leave me alone. I did nothing to you. Let me go, I need to leave this place. What have I done to you? I don't want anything from you." Patient repositioned and re-oriented to room and surroundings. RN offered bed [place] and urinal. Patient denies need to void. Restraints applied to bilateral wrists, order obtained from Dr. Oliver.
--- NOTE | 2020-07-10 14:23 | NUR ---
CASE MANAGEMENT:REVIEW 75YR OLD MALE BIBA FROM [facility] CC; WEAKNESS SI: SEPSIS. PYELONEPHRITIS HYPOKALEMIA 99.1 111 18 122/72 98% ON RA K-2.4 IS: 1L NS BOLUS IV MEROPENEM IV KCL PO KCL : TO TELEMETRY DCP: RETURN TO [facility]
--- NOTE | 2020-07-10 15:38 | Diagnostic Imaging Report ---
Indication: Weakness Technique: XRAY Chest 1v Comparison: None Findings: Heart size and mediastinal contours are within normal limits for AP technique. There is indwelling right chest Mediport, catheter tip in the upper SVC. There are patchy opacities in the right base. No significant pleural effusion. No acute osseous abnormality. Rounded radiodensity projects over the medial right upper chest - likely external to the patient. IMPRESSION: Patchy right basilar opacities which may represent atelectasis however pneumonia not excluded. Clinical correlation and followup recommended.
--- NOTE | 2020-07-10 15:45 | Diagnostic Imaging Report ---
EXAM: ULTRASOUND Venous Duplex Scan Tobias Leg CLINICAL HISTORY: Leg pain and edema. COMPARISON: None TECHNIQUE: Doppler examination include grayscale images obtained with and without compression, and color and spectral doppler analysis. FINDINGS: Doppler examination shows normal spontaneity, phasicity, compressibility in the bilateral lower extremities. There is no thrombus identified by grayscale. Normal color and spectral flow is identified. There is no evidence of valvular incompetency or insufficiency. IMPRESSION: NO EVIDENCE OF DVT.
[2020-07-10 16:00] VITALS: BP 131/80
--- NOTE | 2020-07-10 17:10 | Internal Med Progress Note ---
Subjective Physician Name Mark Bonilla Attending Physician Mark Bonilla MD Current Medications Medications (Trade) Dose Ordered Sig/Anitra Route PRN Reason Start Time Stop Time Status Last Admin Dose Admin Acetaminophen (Tylenol) 650 mg Q4H PRN ORAL fever 07/09/20 20:30 08/08/20 20:29 Albuterol/ Ipratropium (Albuterol/ Ipratropium) 3 ml Q4H PRN HHN Shortness of Breath 07/09/20 20:30 07/14/20 20:29 Atorvastatin Calcium (Lipitor) 40 mg BEDTIME ORAL 07/10/20 21:00 10/08/20 20:59 Bicalutamide (Casodex) 50 mg DAILY ORAL 07/10/20 09:00 07/15/20 08:59 07/10/20 08:58 Cefepime HCl 2 gm/ Dextrose 110 ml @ 220 mls/hr EVERY 12 HOURS IV 07/09/20 21:00 07/16/20 20:59 07/10/20 08:58 Dextrose/ Electrolytes 1,000 ml @ 75 mls/hr [id number] IV 07/09/20 22:00 08/08/20 21:59 07/10/20 11:57 Gabapentin (Neurontin) 400 mg QID ORAL 07/10/20 09:00 08/09/20 08:59 07/10/20 08:55 Levothyroxine Sodium (Synthroid) 50 mcg ACBREAKFAST ORAL 07/10/20 06:30 08/09/20 06:29 07/10/20 06:38 Lisinopril (ZestriL) 10 mg DAILY ORAL 07/10/20 09:00 08/09/20 08:59 07/10/20 08:55 Ondansetron HCl (Zofran) 4 mg Q6H PRN IVP Nausea & Vomiting 07/09/20 20:30 08/08/20 20:29 Pantoprazole (Protonix) 40 mg DAILY ORAL 07/10/20 09:00 08/09/20 08:59 07/10/20 08:55 Polyethylene Glycol (Miralax) 17 gm DAILYPRN PRN ORAL Constipation 07/09/20 20:30 08/08/20 20:29 Potassium Chloride 100 ml @ 100 mls/hr Q1H IVPB 07/10/20 14:15 07/10/20 18:14 07/10/20 16:17 Rivaroxaban (Xarelto) 20 mg DAILY ORAL 07/10/20 09:00 10/08/20 08:59 07/10/20 08:55 Tamsulosin HCl (Flomax) 0.4 mg DAILY ORAL 07/10/20 09:00 08/09/20 08:59 07/10/20 08:55 Temazepam (Restoril) 15 mg HSPRN PRN ORAL Insomnia 07/09/20 20:30 07/16/20 20:29 Vancomycin HCl 750 mg/Sodium Chloride 275 ml @ 183.299 mls/hr Q12H IVPB 07/09/20 22:00 07/14/20 21:59 07/10/20 10:00 Allergies: Coded Allergies: No Known Allergies (Unverified , 07/09/20) Subjective awake, alert, more responsive, denies any chest pain K: 2.5 Objective Last Vital Signs Date Time Temp Pulse Resp B/P (MAP) Pulse Ox O2 Delivery O2 Flow Rate FiO2 07/10/20 16:00 100 07/10/20 16:00 97.0 23 131/80 (97) 94 07/10/20 09:00 Room Air Laboratory Tests Test 07/09/20 17:20 07/09/20 18:35 07/10/20 06:01 White Blood Count 8.6 K/UL (4.8-10.8) 7.7 K/UL (4.8-10.8) Red Blood Count 4.49 M/UL (4.70-6.10) L 3.91 M/UL (4.70-6.10) L Hemoglobin 13.5 G/DL (14.2-18.0) L 11.9 G/DL (14.2-18.0) L Hematocrit 41.1 % (42.0-52.0) L 35.9 % (42.0-52.0) L Mean Corpuscular Volume 92 FL (80-99) 92 FL (80-99) Mean Corpuscular Hemoglobin 30.1 PG (27.0-31.0) 30.5 PG (27.0-31.0) Mean Corpuscular Hemoglobin Concent 32.9 G/DL (32.0-36.0) 33.2 G/DL (32.0-36.0) Red Cell Distribution Width 14.9 % (11.6-14.8) H 15.1 % (11.6-14.8) H Platelet Count 231 K/UL (150-450) 209 K/UL (150-450) Mean Platelet Volume 6.9 FL (6.5-10.1) 7.4 FL (6.5-10.1) Neutrophils (%) (Auto) 77.9 % (45.0-75.0) H 76.5 % (45.0-75.0) H Lymphocytes (%) (Auto) 13.5 % (20.0-45.0) L 14.6 % (20.0-45.0) L Monocytes (%) (Auto) 7.9 % (1.0-10.0) 8.2 % (1.0-10.0) Eosinophils (%) (Auto) 0.1 % (0.0-3.0) 0.4 % (0.0-3.0) Basophils (%) (Auto) 0.7 % (0.0-2.0) 0.3 % (0.0-2.0) D-Dimer 2.15 mg/L FEU (0.00-0.49) H Urine Color Yellow Urine Appearance Slightly cloudy Urine pH 5 (4.5-8.0) Urine Specific [place] 1.020 (1.005-1.035) Urine Protein 1+ (NEGATIVE) H Urine Glucose (UA) Negative (NEGATIVE) Urine Ketones Negative (NEGATIVE) Urine Blood 3+ (NEGATIVE) H Urine Nitrite Negative (NEGATIVE) Urine Bilirubin Negative (NEGATIVE) Urine Urobilinogen 1 MG/DL (0.0-1.0) H Urine Leukocyte Esterase 2+ (NEGATIVE) H Urine RBC 5-10 /HPF (0 - 0) H Urine WBC 20-30 /HPF (0 - 0) H Urine Squamous Epithelial Cells None /LPF (NONE/OCC) Urine Bacteria Moderate /HPF (NONE) H Sodium Level 144 MMOL/L (136-145) 146 MMOL/L (136-145) H Potassium Level 2.4 MMOL/L (3.5-5.1) *L 2.5 MMOL/L (3.5-5.1) *L Chloride Level 105 MMOL/L (98-107) 109 MMOL/L (98-107) H Carbon Dioxide Level 30 MMOL/L (21-32) 28 MMOL/L (21-32) Anion Gap 10 mmol/L (5-15) Blood Urea Nitrogen 14 mg/dL (7-18) 13 mg/dL (7-18) Creatinine 1.0 MG/DL (0.55-1.30) 0.9 MG/DL (0.55-1.30) Estimat Glomerular Filtration Rate > 60 mL/min (>60) > 60 mL/min (>60) Glucose Level 149 MG/DL (74-106) H 117 MG/DL (74-106) H Lactic Acid Level 3.20 mmol/L (0.4-2.0) H 3.70 mmol/L (0.66-2.22) H Calcium Level 12.6 MG/DL (8.5-10.1) H 11.1 MG/DL (8.5-10.1) H Ferritin 2404 NG/ML (8-388) H Total Bilirubin 1.6 MG/DL (0.2-1.0) H 1.2 MG/DL (0.2-1.0) H Direct Bilirubin 0.6 MG/DL (0.0-0.3) H 0.4 MG/DL (0.0-0.3) H Aspartate Amino Transf (AST/SGOT) 137 U/L (15-37) H 133 U/L (15-37) H Alanine Aminotransferase (ALT/SGPT) 34 U/L (12-78) 27 U/L (12-78) Alkaline Phosphatase 186 U/L (46-116) H 155 U/L (46-116) H Lactate Dehydrogenase 395 U/L (81-234) H Total Creatine Kinase 233 U/L (26-308) Creatine Kinase MB 0.7 NG/ML (0.0-3.6) Creatine Kinase MB Relative Index 0.3 Troponin I 0.000 ng/mL (0.000-0.056) 0.000 ng/mL (0.000-0.056) C-Reactive Protein, Quantitative 19.7 mg/dL (0.00-0.90) H Total Protein 6.4 G/DL (6.4-8.2) 5.7 G/DL (6.4-8.2) L Albumin 2.8 G/DL (3.4-5.0) L 2.4 G/DL (3.4-5.0) L Globulin 3.6 g/dL 3.3 g/dL Albumin/Globulin Ratio 0.8 (1.0-2.7) L 0.7 (1.0-2.7) L Thyroid Stimulating Hormone (TSH) 2.914 uiU/mL (0.358-3.740) Free Thyroxine 1.32 NG/DL (0.76-1.46) Phosphorus Level 2.5 MG/DL (2.5-4.9) Magnesium Level 1.8 MG/DL (1.8-2.4) Microbiology Date/Time Source Procedure Growth Status 07/09/20 19:00 Rectum Received 07/09/20 17:25 Nasopharynx SARS-CoV-2 RdRp Gene Assay - Final Complete Intake and Output 07/09/20 07/10/20 19:00 07:00 Intake Total 475 ml Balance 475 ml Intake IV Total 75 ml Other 400 ml # Voids 1 Objective GENERAL: awake and responsive, but very chronically ill-appearing. HEAD AND NECK: Pupils are equal and reactive to light. Extraocular movements are intact. Neck was supple. No JVD. LUNGS: Good air entry. No wheezing or rales. Decreased air in bases. ABDOMEN: Soft, nondistended, and nontender. Positive bowel sounds. EXTREMITIES: No cyanosis, clubbing or edema. left ankle brace noted. NEUROLOGIC: Cranial nerves II through XII grossly intact. The patient is moving upper extremities. Lower extremities weaker 4/5 strength. SKIN: He has a tattoo on the upper extremity as well as trunk area. Assessment/Plan Assessment/Plan ASSESSMENT: 1. Sepsis secondary to urinary tract infection. 2. Hypokalemia. 3. Severe dehydration and prerenal azotemia. 4. Metastatic prostate cancer. 5. Gastroesophageal reflux disease. 6. Paraplegia. 7. Hypertension. 8. BPH. 9. Hypothyroidism. 10. Dyslipidemia. 11. Hypokalemia PLAN: In monitored unit. Monitor laboratory as well as culture. Broad-spectrum antibiotic with vancomycin and cefepime IV. Code status is Full Code. DVT prophylaxis: Xarelto KCl supplements. IV fluid. PT mobility. Mark Bonilla MD Jul 10, 2020 17:10
[2020-07-10] MEDS ORDERED: MORPHINE SULFATE ORAL (17:55)
[2020-07-10] MEDS ORDERED: ZESTRIL10 M1 ORAL (17:55)
[2020-07-10] MEDS ORDERED: XARELTO20 MG ORAL (17:55)
[2020-07-10] MEDS ORDERED: PREDNISONE5 M3 PO (17:55)
[2020-07-10] MEDS ORDERED: MORPHINE IR15 MG ORAL (17:55)
--- NOTE | 2020-07-10 19:03 | NUR ---
NURSE HAND-OFF REPORT: Important Events on Shift:[restraints, IV removed/replaced, BM, refusing PO meds, potassium replacement] Patient Status: [FULL CODE] Diet: [regular] Pending Orders: [] Pending Results/Labs:[] Pending MD notification:[] Latest Vital Signs: Temperature 97.0 , Pulse 100 , B/P 131 /80 , Respiratory Rate 23 , O2 SAT 94 , Room Air, O2 Flow Rate . Vital Sign Comment: [] EKG Rhythm: Sinus Rhythm Rhythm change?: N MD Notified?: - MD Response: Latest Roche Fall Score: 55 Fall Risk: High Risk Safety Measures: Call light Within Reach, Bed Alarm Zone 1, Side Rails Side Rails x2, Bed position Low and Locked. Fall Precautions: Yellow Socks Yellow Gown Door Sign Patient Fall Education Report given to [].
--- NOTE | 2020-07-10 19:35 | NUR ---
NURSE NOTES: Pt received from LAURITA Horton. Pt is resting comfortably in bed and denies any pain. Pt is A/O x1 and alert to self. Pt is on cardiac monitoring SR and asymptomatic. Pt is breathing unlabored on RA and asymptomatic. Pt has BSoft Wrist Restraints for pulling on devices; skin is intact and PMSC x4 is present. Pt has LH 24 G D51/2NS+20mEqKCl running at 75 ml/hr patent with skin dry and intact. Bed is locked in lowest position and call light is within reach. Will continue to monitor.
[2020-07-10 20:00] VITALS: BP 136/69
[2020-07-10] MEDS: Atorvastatin 20mg tab ORAL SCH (21:00)
[2020-07-11] VITALS (7 sets, daily range): BP systolic 112–146; BP diastolic 70–83
[2020-07-11] MEDS: D5 1/2NS w/KCl 20mEq 1,000 ML IV SCH ×2 (00:15→14:40)
--- NOTE | 2020-07-11 07:32 | NUR ---
NURSE HAND-OFF REPORT: Important Events on Shift: Pt refused vanc trough and midnight dose of vanco was held Patient Status: stable Diet: Pending Orders: Pending Results/Labs: Vanc Trough Pending MD notification: Latest Vital Signs: Temperature 98.6 , Pulse 92 , B/P 127 /83 , Respiratory Rate 18 , O2 SAT 96 , Room Air, O2 Flow Rate . Vital Sign Comment: VSS EKG Rhythm: Sinus Rhythm Rhythm change?: N MD Notified?: - MD Response: Latest Roche Fall Score: 55 Fall Risk: High Risk Safety Measures: Call light Within Reach, Bed Alarm Zone 1, Side Rails Side Rails x2, Bed position Low and Locked. Fall Precautions: Yellow Socks Yellow Gown Door Sign Patient Fall Education Report given to LAURITA Menjivar.
--- NOTE | 2020-07-11 07:37 | NUR ---
NURSE NOTES: Received report from Jamal/RN. Pt is in bed sleeping, on soft bilateral wrist restrains, will monitor q2hr. On room air, no distress or SOB noted. IV on left hand 24G running D5 1/2 NS + 20 Kcl at 75ml/hr. Bed in the lowest position and locked. Call light within reach, encouraged to use it when needed. Side rails up X3. Will continue plan of care.
[2020-07-11 07:51] LABS: BASOPHILS % (AUTO) 0.4 % (0.0-2.0); EOSINOPHILS % (AUTO) 1.4 % (0.0-3.0); HEMATOCRIT 32.2 % (42.0-52.0); HEMOGLOBIN 10.6 G/DL (14.2-18.0); LYMPHOCYTES % (AUTO) 11.2 % (20.0-45.0); MEAN CORPUSCULAR VOLUME 91 FL (80-99); MONOCYTES % (AUTO) 8.3 % (1.0-10.0); NEUTROPHILS % (AUTO) 78.7 % (45.0-75.0); PLATELET COUNT 188 K/UL (150-450); RED BLOOD COUNT 3.54 M/UL (4.70-6.10); RED CELL DISTRIBUTION WIDTH 14.8 % (11.6-14.8); WHITE BLOOD COUNT 6.2 K/UL (4.8-10.8)
--- NOTE | 2020-07-11 07:54 | Infectious Diseases Prog Note ---
Assessment/Plan Abx: Meropenem x1 07/09 IV Vancomycin 07/09- Cefepime 07/09- Assessment: COVID19 neg x (07/09 rapid COVID PCR neg) -CXR: report pending; per ED documentation: no consolidation, no effusion, no pneumothorax, no acute cardiopulmonary disease Sepsis UTI -u/a wbc 20-30, nit neg, leuk +2; ucx p -Bcx NTD Afebrile No leukocytosis Hypernatremia Hypokalemia HTN BPH GERD HLD paraplegia hypothyroidism metastatic Prostate CA [facility] resident (Talisha Melvin) Plan: -Continue empiric Cefepime #3 pending ucx -Stop empiric IV Vancomycin #2 given neg BCx -f/u cx -Monitor CBC/CMP, temperatures -f/u CXR -aspiration precautions Thank you for consulting [facility]. Will continue to follow along with you. Discussed with RN. Subjective Allergies: Coded Allergies: No Known Allergies (Unverified , 07/09/20) AF No leukocytosis NAD in bed Objective Last 24 Hour Vital Signs Date Time Temp Pulse Resp B/P (MAP) Pulse Ox O2 Delivery O2 Flow Rate FiO2 07/11/20 04:00 98.6 92 18 127/83 (98) 96 07/11/20 04:00 94 07/11/20 00:00 94 07/11/20 00:00 96.9 92 20 112/70 (84) 96 07/10/20 21:00 Room Air 07/10/20 20:00 103 07/10/20 20:00 97.6 101 18 136/69 (91) 96 07/10/20 16:00 100 07/10/20 16:00 97.0 87 23 131/80 (97) 94 07/10/20 12:00 97 07/10/20 12:00 97.0 97 21 137/67 (90) 98 07/10/20 09:00 Room Air 07/10/20 08:55 108/70 07/10/20 08:00 99 07/10/20 08:00 96.4 97 20 108/70 (83) 97 Height (Feet): 5 Height (Inches): 9.00 Weight (Pounds): 149 Gen: NAD HEENT: NCAT, EOMI, PERRL CV: RRR Pulm: CTAB Abd: Soft, NTND Ext: No c/c/e Neuro: Awake Microbiology Date/Time Source Procedure Growth Status 07/09/20 19:00 Rectum Received 07/09/20 17:25 Nasopharynx SARS-CoV-2 RdRp Gene Assay - Final Complete 07/09/20 17:25 Blood Blood Culture - Preliminary NO GROWTH AFTER 24 HOURS Resulted 07/09/20 17:20 Urine,Clean Catch Urine Culture - Preliminary Gram Negative Lan Resulted 07/09/20 17:15 Blood Blood Culture - Preliminary NO GROWTH AFTER 24 HOURS Resulted Laboratory Tests Test 07/11/20 06:50 White Blood Count Pending Red Blood Count Pending Hemoglobin Pending Hematocrit Pending Mean Corpuscular Volume Pending Mean Corpuscular Hemoglobin Pending Mean Corpuscular Hemoglobin Concent Pending Red Cell Distribution Width Pending Platelet Count Pending Mean Platelet Volume Pending Neutrophils (%) (Auto) Pending Lymphocytes (%) (Auto) Pending Monocytes (%) (Auto) Pending Eosinophils (%) (Auto) Pending Basophils (%) (Auto) Pending Erythrocyte Sedimentation Rate Pending Sodium Level Pending Potassium Level Pending Chloride Level Pending Carbon Dioxide Level Pending Blood Urea Nitrogen Pending Creatinine Pending Estimat Glomerular Filtration Rate Pending Glucose Level Pending Calcium Level Pending Phosphorus Level Pending Magnesium Level Pending Total Bilirubin Pending Aspartate Amino Transf (AST/SGOT) Pending Alanine Aminotransferase (ALT/SGPT) Pending Alkaline Phosphatase Pending C-Reactive Protein, Quantitative Pending Total Protein Pending Albumin Pending Globulin Pending Carcinoembryonic Antigen Pending Free Prostate Specific Antigen Pending Percent Free Prostate Specific Ag Pending Prostate Specific Antigen Total Pending Current Medications Medications (Trade) Dose Ordered Sig/Anitra Route PRN Reason Start Time Stop Time Status Last Admin Dose Admin Acetaminophen (Tylenol) 650 mg Q4H PRN ORAL fever 07/09/20 20:30 08/08/20 20:29 Albuterol/ Ipratropium (Albuterol/ Ipratropium) 3 ml Q4H PRN HHN Shortness of Breath 07/09/20 20:30 07/14/20 20:29 Atorvastatin Calcium (Lipitor) 40 mg BEDTIME ORAL 07/10/20 21:00 10/08/20 20:59 Bicalutamide (Casodex) 50 mg DAILY ORAL 07/10/20 09:00 07/15/20 08:59 07/10/20 08:58 Cefepime HCl 2 gm/ Dextrose 110 ml @ 220 mls/hr EVERY 12 HOURS IV 07/09/20 21:00 07/16/20 20:59 07/10/20 21:00 Dextrose/ Electrolytes 1,000 ml @ 75 mls/hr [id number] IV 07/09/20 22:00 08/08/20 21:59 07/11/20 00:15 Gabapentin (Neurontin) 400 mg QID ORAL 07/10/20 09:00 08/09/20 08:59 07/10/20 08:55 Levothyroxine Sodium (Synthroid) 50 mcg ACBREAKFAST ORAL 07/10/20 06:30 08/09/20 06:29 07/10/20 06:38 Lisinopril (ZestriL) 10 mg DAILY ORAL 07/10/20 09:00 08/09/20 08:59 07/10/20 08:55 Ondansetron HCl (Zofran) 4 mg Q6H PRN IVP Nausea & Vomiting 07/09/20 20:30 08/08/20 20:29 Pantoprazole (Protonix) 40 mg DAILY ORAL 07/10/20 09:00 08/09/20 08:59 07/10/20 08:55 Polyethylene Glycol (Miralax) 17 gm DAILYPRN PRN ORAL Constipation 07/09/20 20:30 08/08/20 20:29 Rivaroxaban (Xarelto) 20 mg DAILY ORAL 07/10/20 09:00 10/08/20 08:59 07/10/20 08:55 Tamsulosin HCl (Flomax) 0.4 mg DAILY ORAL 07/10/20 09:00 08/09/20 08:59 07/10/20 08:55 Temazepam (Restoril) 15 mg HSPRN PRN ORAL Insomnia 07/09/20 20:30 07/16/20 20:29 Vancomycin HCl (Vanco pharmacy to dose) 1 ea DAILY PRN MISC PER RX PROTOCOL 07/10/20 18:30 08/09/20 18:29 Vancomycin HCl 750 mg/Sodium Chloride 275 ml @ 183.299 mls/hr Q12H IVPB 07/09/20 22:00 07/14/20 21:59 07/10/20 10:00 Leonie Prater M.D. Jul 11, 2020 07:54
[2020-07-11 08:25] LABS: ALANINE AMINOTRANSFERASE 27 U/L (12-78); ALBUMIN 2.2 G/DL (3.4-5.0); ALBUMIN/GLOBULIN RATIO 0.7 (1.0-2.7); ALKALINE PHOSPHATASE 159 U/L (46-116); ANION GAP 9 mmol/L (5-15); ASPARTATE AMINO TRANSFERASE 136 U/L (15-37); BLOOD UREA NITROGEN 10 mg/dL (7-18); CALCIUM 10.9 MG/DL (8.5-10.1); CARBON DIOXIDE 25 MMOL/L (21-32); CHLORIDE 109 MMOL/L (98-107); CREATININE 0.9 MG/DL (0.55-1.30); PHOSPHORUS 2.3 MG/DL (2.5-4.9); POTASSIUM 3.1 MMOL/L (3.5-5.1); SODIUM 143 MMOL/L (136-145)
[2020-07-11] MEDS: Bicalutamide 50mg tab ORAL SCH (09:00)
[2020-07-11] MEDS: Tamsulosin 0.4mg cap ORAL SCH (09:00)
[2020-07-11] MEDS: Lisinopril 10mg tab ORAL SCH (09:00)
[2020-07-11] MEDS: Xarelto 10mg tab ORAL SCH (09:00)
[2020-07-11] MEDS: Cefepime HCl 2 GM in D5W 110 ML IV SCH ×2 (09:54→21:00)
--- NOTE | 2020-07-11 09:57 | Pulmonology Progress Note ---
Subjective Allergies: Coded Allergies: No Known Allergies (Unverified , 07/09/20) Subjective remains afebrile, no leukocytosis no signs of resp distress low K and Mg Objective Last 24 Hour Vital Signs Date Time Temp Pulse Resp B/P (MAP) Pulse Ox O2 Delivery O2 Flow Rate FiO2 07/11/20 08:00 98.1 94 20 136/81 (99) 94 07/11/20 04:00 98.6 92 18 127/83 (98) 96 07/11/20 04:00 94 07/11/20 00:00 94 07/11/20 00:00 96.9 92 20 112/70 (84) 96 07/10/20 21:00 Room Air 07/10/20 20:00 103 07/10/20 20:00 97.6 101 18 136/69 (91) 96 07/10/20 16:00 100 07/10/20 16:00 97.0 87 23 131/80 (97) 94 07/10/20 12:00 97 07/10/20 12:00 97.0 97 21 137/67 (90) 98 Intake and Output 07/10/20 07/11/20 19:00 07:00 Intake Total 850 ml 60 ml Balance 850 ml 60 ml Intake Oral 100 ml 60 ml IV Total 750 ml # Voids 1 # Bowel Movements 1 General Appearance: no acute distress HEENT: normocephalic, atraumatic, anicteric, mucous membranes moist Respiratory: no respiratory distress, no accessory muscle use, decreased breath sounds Cardiovascular: normal rate, regular rhythm - SR on tele Abdomen: soft, non tender, non distended Extremities: no edema, pedal pulses normal Skin: other - multiple tattoos BL upper arms and trunk Neurologic: abnormal gait, alert, oriented x 3, responsive, other - muscle strendgth BLE 1/ Microbiology Date/Time Source Procedure Growth Status 07/09/20 19:00 Rectum Received 07/09/20 17:25 Nasopharynx SARS-CoV-2 RdRp Gene Assay - Final Complete 07/09/20 17:25 Blood Blood Culture - Preliminary NO GROWTH AFTER 24 HOURS Resulted 07/09/20 17:20 Urine,Clean Catch Urine Culture - Preliminary Gram Negative Lan Resulted 07/09/20 17:15 Blood Blood Culture - Preliminary NO GROWTH AFTER 24 HOURS Resulted Laboratory Tests 07/11/20 06:50: White Blood Count 6.2, Red Blood Count 3.54L, Hemoglobin 10.6L, Hematocrit 32.2L , Mean Corpuscular Volume 91, Mean Corpuscular Hemoglobin 30.0, Mean Corpuscular Hemoglobin Concent 33.0, Red Cell Distribution Width 14.8, Platelet Count 188, Mean Platelet Volume 7.6, Neutrophils (%) (Auto) 78.7H, Lymphocytes (%) (Auto) 11.2L, Monocytes (%) (Auto) 8.3, Eosinophils (%) (Auto) 1.4, Basophils (%) (Auto) 0.4, Erythrocyte Sedimentation Rate 67H, Sodium Level 143, Potassium Level 3.1L, Chloride Level 109H, Carbon Dioxide Level 25, Anion Gap 9, Blood Urea Nitrogen 10, Creatinine 0.9, Estimat Glomerular Filtration Rate > 60, Glucose Level 118H, Calcium Level 10.9H, Phosphorus Level 2.3L, Magnesium Level 1.5L, Total Bilirubin 1.0, Aspartate Amino Transf (AST/SGOT) 136H, Alanine Aminotransferase (ALT/SGPT) 27, Alkaline Phosphatase 159H, C-Reactive Protein, Quantitative 12.3H, Total Protein 5.4L, Albumin 2.2L, Globulin 3.2, Albumin/Globulin Ratio 0.7L, Carcinoembryonic Antigen [Pending], Free Prostate Specific Antigen [Pending], Percent Free Prostate Specific Ag [Pending], Prostate Specific Antigen Total [Pending] Current Medications Medications (Trade) Dose Ordered Sig/Anitra Route PRN Reason Start Time Stop Time Status Last Admin Dose Admin Acetaminophen (Tylenol) 650 mg Q4H PRN ORAL fever 07/09/20 20:30 08/08/20 20:29 Albuterol/ Ipratropium (Albuterol/ Ipratropium) 3 ml Q4H PRN HHN Shortness of Breath 07/09/20 20:30 07/14/20 20:29 Atorvastatin Calcium (Lipitor) 40 mg BEDTIME ORAL 07/10/20 21:00 10/08/20 20:59 Bicalutamide (Casodex) 50 mg DAILY ORAL 07/10/20 09:00 07/15/20 08:59 07/10/20 08:58 Cefepime HCl 2 gm/ Dextrose 110 ml @ 220 mls/hr EVERY 12 HOURS IV 07/09/20 21:00 07/16/20 20:59 07/10/20 21:00 Dextrose/ Electrolytes 1,000 ml @ 75 mls/hr [id number] IV 07/09/20 22:00 08/08/20 21:59 07/11/20 00:15 Gabapentin (Neurontin) 400 mg QID ORAL 07/10/20 09:00 08/09/20 08:59 07/10/20 08:55 Levothyroxine Sodium (Synthroid) 50 mcg ACBREAKFAST ORAL 07/10/20 06:30 08/09/20 06:29 07/10/20 06:38 Lisinopril (ZestriL) 10 mg DAILY ORAL 07/10/20 09:00 08/09/20 08:59 07/10/20 08:55 Ondansetron HCl (Zofran) 4 mg Q6H PRN IVP Nausea & Vomiting 07/09/20 20:30 08/08/20 20:29 Pantoprazole (Protonix) 40 mg DAILY ORAL 07/10/20 09:00 08/09/20 08:59 07/10/20 08:55 Polyethylene Glycol (Miralax) 17 gm DAILYPRN PRN ORAL Constipation 07/09/20 20:30 08/08/20 20:29 Rivaroxaban (Xarelto) 20 mg DAILY ORAL 07/10/20 09:00 10/08/20 08:59 07/10/20 08:55 Tamsulosin HCl (Flomax) 0.4 mg DAILY ORAL 07/10/20 09:00 08/09/20 08:59 07/10/20 08:55 Temazepam (Restoril) 15 mg HSPRN PRN ORAL Insomnia 07/09/20 20:30 07/16/20 20:29 Assessment/Plan Assessment/Plan ASSESSMENT Sepsis secondary to UTI UTI Hypokalemia Metastatic prostate cancer Hypercalcemia Elevated LFT Severe protein calorie malnutrition Hypertension Paraplegia Hypothyroidism PLAN OF CARE tele IVF abx as per ID recs , fup cx UCX GNR, BCX NGTD O2 titrate to keep sat above 92 fup with CXR venous duplex BLE NGT patient on Xarelto , ? unclear reason , continue for now in SR monitor lytes, correct as need continue Casodex BP management with CHAGO knee aspiration precautions GI prophylaxis continue levothyroxine , TSH WNL dietary eval replace K and Mg , check in am consider nephro eval for hypercalcemia , likely2 to metastatic disease trend LFT transfer to [place] case discussed and evaluated by supervising physician Vita Veliz NP Jul 11, 2020 09:57
--- NOTE | 2020-07-11 09:59 | NUR ---
NURSE NOTES: Called Dr Bonilla to let him know that Pt is refusing all his PO medications.
--- NOTE | 2020-07-11 12:28 | NUR ---
P.T Note: P.T evaluation attempted however unable to proceed due to patient uncooperative and combative. Pt currently wrist restraint. Will reattempt when/as patient cooperates. Conferred with RN.
--- NOTE | 2020-07-11 14:53 | NUR ---
P.T Note: P.T reattempted and completed. Pt is alert, reports c/o generalized pain:pain not able to quantify. Pt is confused and resistive with mobilities. Pt currently dependent in all basic bed mobilities. Pt able to sit at the EOB with total assist needed as pt is retropulsive. Current functional status does not warrant skilled P.T service as pt is already at baseline. Recommend DC to prior living arrangement if cleared for DC from this hospital.
--- NOTE | 2020-07-11 16:26 | Internal Med Progress Note ---
Subjective Date of Service: Jul 11, 2020 Physician Name RojasRajan Attending Physician Mark Bonilla MD Current Medications Medications (Trade) Dose Ordered Sig/Anitra Route PRN Reason Start Time Stop Time Status Last Admin Dose Admin Acetaminophen (Tylenol) 650 mg Q4H PRN ORAL fever 07/09/20 20:30 08/08/20 20:29 Albuterol/ Ipratropium (Albuterol/ Ipratropium) 3 ml Q4H PRN HHN Shortness of Breath 07/09/20 20:30 07/14/20 20:29 Atorvastatin Calcium (Lipitor) 40 mg BEDTIME ORAL 07/10/20 21:00 10/08/20 20:59 Bicalutamide (Casodex) 50 mg DAILY ORAL 07/10/20 09:00 07/15/20 08:59 07/10/20 08:58 Cefepime HCl 2 gm/ Dextrose 110 ml @ 220 mls/hr EVERY 12 HOURS IV 07/09/20 21:00 07/16/20 20:59 07/11/20 09:54 Dextrose/ Electrolytes 1,000 ml @ 75 mls/hr [id number] IV 07/09/20 22:00 08/08/20 21:59 07/11/20 14:40 Gabapentin (Neurontin) 400 mg QID ORAL 07/10/20 09:00 08/09/20 08:59 07/10/20 08:55 Levothyroxine Sodium (Synthroid) 50 mcg ACBREAKFAST ORAL 07/10/20 06:30 08/09/20 06:29 07/10/20 06:38 Lisinopril (ZestriL) 10 mg DAILY ORAL 07/10/20 09:00 08/09/20 08:59 07/10/20 08:55 Ondansetron HCl (Zofran) 4 mg Q6H PRN IVP Nausea & Vomiting 07/09/20 20:30 08/08/20 20:29 Pantoprazole (Protonix) 40 mg DAILY ORAL 07/10/20 09:00 08/09/20 08:59 07/10/20 08:55 Polyethylene Glycol (Miralax) 17 gm DAILYPRN PRN ORAL Constipation 07/09/20 20:30 08/08/20 20:29 Potassium Chloride (K-Dur) 40 meq ONCE ORAL 07/11/20 10:00 10/09/20 12:59 Rivaroxaban (Xarelto) 20 mg DAILY ORAL 07/10/20 09:00 10/08/20 08:59 07/10/20 08:55 Tamsulosin HCl (Flomax) 0.4 mg DAILY ORAL 07/10/20 09:00 08/09/20 08:59 07/10/20 08:55 Temazepam (Restoril) 15 mg HSPRN PRN ORAL Insomnia 07/09/20 20:30 07/16/20 20:29 Allergies: Coded Allergies: No Known Allergies (Unverified , 07/09/20) ROS Limited/Unobtainable: Yes Subjective 75 YO M admitted for generalized weakness and poor PO intake. Now UTI and sepsis. Cover for Int Jimmy- Dr Bonilla Objective Last Vital Signs Date Time Temp Pulse Resp B/P (MAP) Pulse Ox O2 Delivery O2 Flow Rate FiO2 07/11/20 12:00 97.3 97 20 135/78 (97) 95 07/11/20 09:00 Room Air Laboratory Tests Test 07/11/20 06:50 White Blood Count 6.2 K/UL (4.8-10.8) Red Blood Count 3.54 M/UL (4.70-6.10) L Hemoglobin 10.6 G/DL (14.2-18.0) L Hematocrit 32.2 % (42.0-52.0) L Mean Corpuscular Volume 91 FL (80-99) Mean Corpuscular Hemoglobin 30.0 PG (27.0-31.0) Mean Corpuscular Hemoglobin Concent 33.0 G/DL (32.0-36.0) Red Cell Distribution Width 14.8 % (11.6-14.8) Platelet Count 188 K/UL (150-450) Mean Platelet Volume 7.6 FL (6.5-10.1) Neutrophils (%) (Auto) 78.7 % (45.0-75.0) H Lymphocytes (%) (Auto) 11.2 % (20.0-45.0) L Monocytes (%) (Auto) 8.3 % (1.0-10.0) Eosinophils (%) (Auto) 1.4 % (0.0-3.0) Basophils (%) (Auto) 0.4 % (0.0-2.0) Erythrocyte Sedimentation Rate 67 MM/HR (0-20) H Sodium Level 143 MMOL/L (136-145) Potassium Level 3.1 MMOL/L (3.5-5.1) L Chloride Level 109 MMOL/L (98-107) H Carbon Dioxide Level 25 MMOL/L (21-32) Anion Gap 9 mmol/L (5-15) Blood Urea Nitrogen 10 mg/dL (7-18) Creatinine 0.9 MG/DL (0.55-1.30) Estimat Glomerular Filtration Rate > 60 mL/min (>60) Glucose Level 118 MG/DL (74-106) H Calcium Level 10.9 MG/DL (8.5-10.1) H Phosphorus Level 2.3 MG/DL (2.5-4.9) L Magnesium Level 1.5 MG/DL (1.8-2.4) L Total Bilirubin 1.0 MG/DL (0.2-1.0) Aspartate Amino Transf (AST/SGOT) 136 U/L (15-37) H Alanine Aminotransferase (ALT/SGPT) 27 U/L (12-78) Alkaline Phosphatase 159 U/L (46-116) H C-Reactive Protein, Quantitative 12.3 mg/dL (0.00-0.90) H Total Protein 5.4 G/DL (6.4-8.2) L Albumin 2.2 G/DL (3.4-5.0) L Globulin 3.2 g/dL Albumin/Globulin Ratio 0.7 (1.0-2.7) L Carcinoembryonic Antigen Pending Free Prostate Specific Antigen Pending Percent Free Prostate Specific Ag Pending Prostate Specific Antigen Total Pending Microbiology Date/Time Source Procedure Growth Status 07/09/20 19:00 Rectum Received 07/09/20 17:25 Nasopharynx SARS-CoV-2 RdRp Gene Assay - Final Complete 07/09/20 17:25 Blood Blood Culture - Preliminary NO GROWTH AFTER 24 HOURS Resulted 07/09/20 17:20 Urine,Clean Catch Urine Culture - Preliminary Gram Negative Lan Resulted 07/09/20 17:15 Blood Blood Culture - Preliminary NO GROWTH AFTER 24 HOURS Resulted Intake and Output 07/10/20 07/11/20 19:00 07:00 Intake Total 850 ml 60 ml Balance 850 ml 60 ml Intake Oral 100 ml 60 ml IV Total 750 ml # Voids 1 # Bowel Movements 1 Objective Objective GENERAL: awake and responsive, but very chronically ill-appearing. HEAD AND NECK: Pupils are equal and reactive to light. Extraocular movements are intact. Neck was supple. No JVD. LUNGS: Good air entry. No wheezing or rales. Decreased air in bases. ABDOMEN: Soft, nondistended, and nontender. Positive bowel sounds. EXTREMITIES: No cyanosis, clubbing or edema. left ankle brace noted. NEUROLOGIC: Cranial nerves II through XII grossly intact. The patient is moving upper extremities. Lower extremities weaker 4/5 strength. SKIN: He has a tattoo on the upper extremity as well as trunk area. Assessment/Plan Assessment/Plan Assessment/Plan Assessment/Plan Assessment/Plan ASSESSMENT: 1. urinary tract infection=gram neg lan. 2. Hypokalemia. 3. Severe dehydration and prerenal azotemia. 4. Metastatic prostate cancer. 5. Gastroesophageal reflux disease. 6. Paraplegia. 7. Hypertension. 8. BPH. 9. Hypothyroidism. 10. Dyslipidemia. 11. Hypokalemia PLAN: In monitored unit. Monitor laboratory as well as culture. Broad-spectrum antibiotic with vancomycin and cefepime IV. Code status is Full Code. DVT prophylaxis: Xarelto KCl supplements. IV fluid. PT mobility. ID=Dr Dennis Pulmonary/critical care=Rajan Roman MD Jul 11, 2020 16:26
--- NOTE | 2020-07-11 17:31 | NUR ---
TRANSFER TO FLOOR: Patient transferred to room 311-2, per Dr Veliz's order. Report given to Luz/RN. Pt in stable condition. Belongings and medications given to receiving nurse.
--- NOTE | 2020-07-11 17:45 | NUR ---
NURSE NOTES: Received patient from tele. Patient transferred via hospital bed. Stable. Denies pain or SOB. Patient refused to turn for skin assessment. Hemanth is visibly soiled, patient refused to be changed. Patient educated on risks and benefits of repositioning and turning. Patient continued to refuse. Tobias soft wrist restraints noted, CSM intact. Patient has all belongings. Patient appears depressed and withdrawn. Patient instructed to use call light for assistance, verbalized understanding. All safety measures provided. Will continue to monitor.
--- NOTE | 2020-07-11 19:15 | Consultation ---
Consult Note Consult Note I am asked to evaluate the patient at the request of Dr. Bonilla for hypercalcemia and electrolyte imbalances Patient seen in 2 E. this morning. Patient interviewed and examined. Date 2 of patient's hospitalization. Emergency room note: I This patient presents from assisted living facility. He has a history of metastatic prostate cancer per review of his face sheet from the assisted living facility. He has no specific complaints. However, he is unable to articulate a complicated history. However, he can answer yes or no questions. He is brought in by EMS who states he was brought in from an assisted living facility for generalized weakness for the past 4 days and not eating for the past 2 days. There are no other specific complaints. Allergies: No Known Allergies (Unverified , 07/09/20) COVID-19 Screening Contact w/high risk pt: No Experienced COVID-19 symptoms?: No COVID-19 Testing performed FINANCIAL ECONOMIST: No Past Medical History: see triage record, HTN, other - Hypothyroid Social History: Denies: smoking, alcohol use, drug use Reviewed Nursing Documentation: PMH: Agreed; PSxH: Agreed Past Medical History: No History, Except For Hx Hypertension: Yes Hx Cancer: Yes - prostate CA, bph Hx Gastrointestinal Problems: Yes - GERD Hx Neurological Problems: Yes - paraplegia PHYSICAL EXAMINATION: VITAL SIGNS: On admission from the emergency department, temperature 97.3, pulse of 96, respirations 18, and blood pressure 122/72. GENERAL: The patient is awake and responsive, but very chronically ill-appearing. HEAD AND NECK: Pupils are equal and reactive to light. Extraocular movements are intact. Neck was supple. No JVD. LUNGS: Good air entry. No wheezing or rales. Decreased air in bases. Coarse breath sounds occasionally. ABDOMEN: Soft, nondistended, and nontender. Positive bowel sounds. EXTREMITIES: No cyanosis, clubbing or edema. NEUROLOGIC: Cranial nerves II through XII grossly intact. The patient is moving upper extremities. Lower extremities weaker 1/5 strength. SKIN: He has a tattoo on the upper extremity as well as trunk area. LABORATORY DATA: On admission from the emergency department, WBC of 8.6, hemoglobin 13, hematocrit 41, platelets 231,000. Sodium 144, potassium 2.4, chloride 105, bicarb 30, BUN 14, creatinine 1.0, GFR greater than 60. Glucose is 146. Lactic acid is 3.20, repeat one was 3.70. Calcium is 12.6. Total bilirubin of 1.6, direct bilirubin of 0.6, AST of 137, ALT of 34, alkaline phosphatase was 186. Lactate dehydrogenase is 395. Troponin is 0.00. TSH is 2.914, free T4 is 1.32. D-dimer is 2.15. UA is +1 protein, +3 blood, +2 leukocytes, 5 to 10 rbc, 20 to 30 wbc, moderate bacteria. COVID-19 test, rapid test is negative. . Assessment/Plan Hypercalcemia, more pronounced when corrected for hypoalbuminemia Hypokalemia Metastatic prostate cancer Sepsis/UTI Abnormal elevated LFTs Protein calorie malnutrition Hypertension hypothyroidism Paraplegia Suggestions: Continue to hydrate Check PTH level Phosphorus supplement Nasal calcitonin Monitor calcium and phosphorus and electrolytes Per orders Godwin Deng MD Jul 11, 2020 19:15
--- NOTE | 2020-07-11 19:50 | NUR ---
NURSE NOTES: Changed patient's moshe with Quin SHAY, Skin assessment done, skin is c/d/i. Optifoam on sacrum for ppx. Condom cath placed and secured to leg. Patient is stable. All safety measures provided. WIll continue to monitor.
--- NOTE | 2020-07-11 19:54 | NUR ---
NURSE HAND-OFF: Important Events on Shift:transfer from [facility], reposition Patient Status: stable Diet: regular Pending Orders: n/a Pending Results/Labs:n/a Pending MD notification:n/a Latest Vital Signs: Temperature 97.5 , Pulse 103 , B/P 146 /83 , Respiratory Rate 20 , O2 SAT 95 , Room Air, O2 Flow Rate . Vital Sign Comment: n/a Latest Roche Fall Score: 55 Fall Risk: High Risk Safety Measures: Call light Within Reach, Side Rails x2, Bed position Low and Locked. Fall Precautions: Yellow Socks Yellow Gown Door Sign Patient Fall Education Report given to Quin SHAY.
[2020-07-11] MEDS: Phospha 250 Neutral tab ORAL SCH (20:00)
[2020-07-11] MEDS: Atorvastatin 20mg tab ORAL SCH (21:00)
--- NOTE | 2020-07-11 21:10 | NUR ---
NURSES NOTE: Pt in bed, A/OX2. Intermittent confusion noted although pt can answer simple questions appropriately. Breathing pattern is even and unlabored on RA. No outward s/s of distress noted. Soft restraints placed on bilateral wrists. RN checked skin condition- no redness, swelling or abrasions observed on either wrist. Restraints are placed properly allowing for slight movement of the wrist within the restraint. Hydration to be offered Q2H. IV in place, patent, infusing IVF without incident. Pt allowed RN to change and clean him. Pt refusing all medications, however. Bed at lowest level. Call light within reach and able to be accessed with restraints. Pt will continue to be monitored.
[2020-07-12] VITALS: BP 161/89
[2020-07-12 04:00] VITALS: BP 150/90
[2020-07-12] MEDS: D5 1/2NS w/KCl 20mEq 1,000 ML IV SCH ×2 (05:30→15:11)
[2020-07-12 05:53] LABS: BASOPHILS % (AUTO) 0.5 % (0.0-2.0); EOSINOPHILS % (AUTO) 1.3 % (0.0-3.0); HEMATOCRIT 33.1 % (42.0-52.0); MEAN CORPUSCULAR VOLUME 91 FL (80-99); MONOCYTES % (AUTO) 8.9 % (1.0-10.0); NEUTROPHILS % (AUTO) 76.2 % (45.0-75.0); PLATELET COUNT 189 K/UL (150-450); RED BLOOD COUNT 3.63 M/UL (4.70-6.10); RED CELL DISTRIBUTION WIDTH 14.9 % (11.6-14.8); WHITE BLOOD COUNT 6.7 K/UL (4.8-10.8)
[2020-07-12 06:08] LABS: ALANINE AMINOTRANSFERASE 25 U/L (12-78); ALBUMIN 2.1 G/DL (3.4-5.0); ALBUMIN/GLOBULIN RATIO 0.7 (1.0-2.7); ALKALINE PHOSPHATASE 148 U/L (46-116); ANION GAP 10 mmol/L (5-15); ASPARTATE AMINO TRANSFERASE 98 U/L (15-37); BILIRUBIN,TOTAL 0.8 MG/DL (0.2-1.0); BLOOD UREA NITROGEN 7 mg/dL (7-18); CALCIUM 10.8 MG/DL (8.5-10.1); CARBON DIOXIDE 24 MMOL/L (21-32); CHLORIDE 110 MMOL/L (98-107); SODIUM 144 MMOL/L (136-145)
--- NOTE | 2020-07-12 07:40 | NUR ---
NURSE HAND-OFF: Important Events on Shift:[IV came out. Attempted to replace X2. Endorsed to AM nurse. Wound picture taken. Further documentation endorsed to LAURITA Escobar] Patient Status: STABLE Diet: [REGULAR] Pending Orders: [NONE] Pending Results/Labs:[NONE] Pending MD notification:[NONE] Latest Vital Signs: Temperature 98.2 , Pulse 91 , B/P 150 /90 , Respiratory Rate 18 , O2 SAT 96 , Room Air, O2 Flow Rate . Vital Sign Comment: [WNL] Latest Roche Fall Score: 55 Fall Risk: High Risk Safety Measures: Call light Within Reach, Bed Alarm Zone 1, Side Rails Side Rails x2, Bed position Low and Locked. Fall Precautions: Yellow Socks Yellow Gown Door Sign Patient Fall Education Report given to [LAURITA ESCOBAR].
--- NOTE | 2020-07-12 07:40 | NUR ---
NURSE NOTES: Patient is in bed awake and able to verbalize needs. Stable. Breathing is even and unlabored. Patient instructed to use call light for assistance, verbalized understanding. Tobias wrist restraints noted, CSM intact. Patient is in bed in locked and lowest position with call light within reach. All safety measures provided. Will continue to monitor.
[2020-07-12 08:00] VITALS: BP 148/87
[2020-07-12] MEDS: Xarelto 10mg tab ORAL SCH (09:00)
[2020-07-12] MEDS: Phospha 250 Neutral tab ORAL SCH (09:00)
[2020-07-12] MEDS: Tamsulosin 0.4mg cap ORAL SCH (09:00)
[2020-07-12] MEDS: Cefepime HCl 2 GM in D5W 110 ML IV SCH ×2 (09:00→21:58)
[2020-07-12] MEDS: Lisinopril 10mg tab ORAL SCH (09:01)
[2020-07-12] MEDS: Bicalutamide 50mg tab ORAL SCH (09:04)
--- NOTE | 2020-07-12 09:57 | NUR ---
NURSE NOTES: Patient has no IV access, patient refused reinsertion at this time. Oral care provided and condom cath in place and secured to leg. Patient verbalized that he wants RN to leave him alone. Patient is stable. All safety measures provided. Will continue to monitor.
--- NOTE | 2020-07-12 09:58 | Pulmonology Progress Note ---
Subjective ROS Limited/Unobtainable: Yes Allergies: Coded Allergies: No Known Allergies (Unverified , 07/09/20) Subjective remains afebrile, no leukocytosis no signs of resp distress low K , high ca nephro seen and evaluated Objective Last 24 Hour Vital Signs Date Time Temp Pulse Resp B/P (MAP) Pulse Ox O2 Delivery O2 Flow Rate FiO2 07/12/20 09:01 148/87 07/12/20 04:00 98.2 91 18 150/90 (110) 96 07/12/20 00:00 97.3 98 17 161/89 (113) 95 07/11/20 21:00 Room Air 07/11/20 20:00 98.2 105 18 132/83 (99) 96 07/11/20 17:30 97.5 103 20 146/83 (104) 95 07/11/20 16:00 97.7 98 20 145/74 (97) 96 07/11/20 12:00 97.3 97 20 135/78 (97) 95 07/11/20 12:00 101 Intake and Output 07/11/20 07/12/20 19:00 07:00 Intake Total 100 ml 120 ml Balance 100 ml 120 ml Intake Oral 100 ml 120 ml # Bowel Movements 1 General Appearance: no acute distress HEENT: normocephalic, atraumatic, anicteric, mucous membranes moist Respiratory: no respiratory distress, no accessory muscle use, decreased breath sounds Cardiovascular: normal rate, regular rhythm Abdomen: soft, non tender, non distended Extremities: no edema, pedal pulses normal Skin: other - multiple tattoos BL upper arms and trunk Neurologic: abnormal gait, alert, oriented x 3, responsive, other - muscle strendgth BLE 1/5 Microbiology Date/Time Source Procedure Growth Status 07/09/20 19:00 Rectum VRE Culture - Final NO VANCOMYCIN RESISTANT ENTEROCOCCUS ... Complete 07/09/20 19:00 Rectum - Final NO CARBAPENEM-RESISTANT ENTEROBACTERI... Complete 07/09/20 19:00 Nasal Nares MRSA Culture - Final NO METHICILLIN RESISTANT STAPH AUREUS... Complete 07/09/20 17:25 Nasopharynx SARS-CoV-2 RdRp Gene Assay - Final Complete 07/09/20 17:25 Blood Blood Culture - Preliminary NO GROWTH AFTER 48 HOURS Resulted 07/09/20 17:20 Urine,Clean Catch Urine Culture - Final Pseudomonas Aeruginosa Complete 07/09/20 17:15 Blood Blood Culture - Preliminary NO GROWTH AFTER 48 HOURS Resulted Laboratory Tests 07/12/20 05:15: White Blood Count 6.7, Red Blood Count 3.63L, Hemoglobin 11.0L, Hematocrit 33.1L , Mean Corpuscular Volume 91, Mean Corpuscular Hemoglobin 30.3, Mean Corpuscular Hemoglobin Concent 33.2, Red Cell Distribution Width 14.9H, Platelet Count 189, Mean Platelet Volume 6.9, Neutrophils (%) (Auto) 76.2H, Lymphocytes (%) (Auto) 13.0L, Monocytes (%) (Auto) 8.9, Eosinophils (%) (Auto) 1.3, Basophils (%) (Auto) 0.5, Sodium Level 144, Potassium Level 3.0L, Chloride Level 110H, Carbon Dioxide Level 24, Anion Gap 10, Blood Urea Nitrogen 7, Creatinine 1.0, Estimat Glomerular Filtration Rate > 60, Glucose Level 111H, Hemoglobin A1c 5.4, Uric Acid 6.7, Calcium Level 10.8H, Calcium (Send out) [Pending], Phosphorus Level 3.0, Magnesium Level 1.8, Total Bilirubin 0.8, Gamma Glutamyl Transpeptidase 262H, Aspartate Amino Transf (AST/SGOT) 98H, Alanine Aminotransferase (ALT/SGPT) 25, Alkaline Phosphatase 148H, C-Reactive Protein, Quantitative 14.0H, Total Protein 5.2L, Albumin 2.1L, Globulin 3.1, Albumin/Globulin Ratio 0.7L, Vitamin B12 Level 597, Folate 2.1L, Parathyroid Hormone (Intact) [Pending] Current Medications Medications (Trade) Dose Ordered Sig/Anitra Route PRN Reason Start Time Stop Time Status Last Admin Dose Admin Acetaminophen (Tylenol) 650 mg Q4H PRN ORAL fever 07/09/20 20:30 08/08/20 20:29 Albuterol/ Ipratropium (Albuterol/ Ipratropium) 3 ml Q4H PRN HHN Shortness of Breath 07/09/20 20:30 07/14/20 20:29 Atorvastatin Calcium (Lipitor) 40 mg BEDTIME ORAL 07/10/20 21:00 10/08/20 20:59 Bicalutamide (Casodex) 50 mg DAILY ORAL 07/10/20 09:00 07/15/20 08:59 07/12/20 09:04 Calcitonin [place] (Miacalcin) 1 sprays DAILY NASAL 07/11/20 20:00 10/09/20 19:59 Cefepime HCl 2 gm/ Dextrose 110 ml @ 220 mls/hr EVERY 12 HOURS IV 07/09/20 21:00 07/16/20 20:59 07/11/20 09:54 Dextrose/ Electrolytes 1,000 ml @ 75 mls/hr [id number] IV 07/09/20 22:00 08/08/20 21:59 07/12/20 05:30 Gabapentin (Neurontin) 400 mg QID ORAL 07/10/20 09:00 08/09/20 08:59 07/12/20 09:00 Levothyroxine Sodium (Synthroid) 50 mcg ACBREAKFAST ORAL 07/10/20 06:30 08/09/20 06:29 07/12/20 05:41 Lisinopril (ZestriL) 10 mg DAILY ORAL 07/10/20 09:00 08/09/20 08:59 07/12/20 09:01 Ondansetron HCl (Zofran) 4 mg Q6H PRN IVP Nausea & Vomiting 07/09/20 20:30 08/08/20 20:29 Pamidronate Disodium 60 mg/ Sodium Chloride 550 ml @ 137.5 mls/ hr ONCE ONCE IVPB 07/12/20 10:00 07/12/20 13:59 UNV Pantoprazole (Protonix) 40 mg DAILY ORAL 07/10/20 09:00 08/09/20 08:59 07/12/20 09:00 Polyethylene Glycol (Miralax) 17 gm DAILYPRN PRN ORAL Constipation 07/09/20 20:30 08/08/20 20:29 Potassium Chloride (K-Dur) 40 meq TWICE A DAY ORAL 07/12/20 10:00 10/10/20 09:59 UNV Rivaroxaban (Xarelto) 20 mg DAILY ORAL 07/10/20 09:00 10/08/20 08:59 07/12/20 09:00 Tamsulosin HCl (Flomax) 0.4 mg DAILY ORAL 07/10/20 09:00 08/09/20 08:59 07/12/20 09:00 Temazepam (Restoril) 15 mg HSPRN PRN ORAL Insomnia 07/09/20 20:30 07/16/20 20:29 Assessment/Plan Assessment/Plan ASSESSMENT Sepsis secondary to UTI Pseudomonas UTI Atelectasis, r/o PNA Hypokalemia Metastatic prostate cancer Hypercalcemia Elevated LFT Severe protein calorie malnutrition Hypertension Paraplegia Hypothyroidism Paraplegia PLAN OF CARE MS floor IVF with KCL abx as per ID recs , fup cx UCX +Pseudomonas, BCX NGTD O2 titrate to keep sat above 92 fup with CXR in am initial CXR with patchy right basilar opacities , probably representing atelectasis however pneumonia was not excluded. venous duplex BLE NGT patient on Xarelto , ? unclear reason , continue for now remained in SR while on tele monitor lytes, correct as need continue Casodex BP management with CHAGO knee aspiration precautions GI prophylaxis continue levothyroxine , TSH WNL dietary eval nephro eval appreciated additional K replaced this am, Mg stable started on Calcitonin and Aredia x 1 today as per neprho trend LFT case discussed and evaluated by supervising physician Vita Veliz NP Jul 12, 2020 09:58
[2020-07-12 12:00] VITALS: BP 141/82
--- NOTE | 2020-07-12 12:48 | Nephrology Progress Note ---
Assessment/Plan Problem List: (1) Hypercalcemia (2) Hypokalemia (3) Prostate cancer (4) History of hypertension Assessment Hypercalcemia, more pronounced when corrected for hypoalbuminemia Hypokalemia Metastatic prostate cancer Sepsis/UTI Abnormal elevated LFTs Protein calorie malnutrition Hypertension Hypothyroidism Paraplegia Plan Trial of 1 dose of pamidronate for hyper Calcemia. Oral potassium chloride Continue to hydrate Check PTH level, pending Phosphorus supplement Nasal calcitonin Monitor calcium and phosphorus and electrolytes Per orders Subjective ROS Limited/Unobtainable: No Constitutional: Reports: malaise, weakness Objective Objective Last 24 Hour Vital Signs Date Time Temp Pulse Resp B/P (MAP) Pulse Ox O2 Delivery O2 Flow Rate FiO2 07/12/20 12:00 97.5 99 18 141/82 (101) 94 07/12/20 09:01 148/87 07/12/20 09:00 Room Air 07/12/20 08:00 97.2 95 18 148/87 (107) 96 07/12/20 04:00 98.2 91 18 150/90 (110) 96 07/12/20 00:00 97.3 98 17 161/89 (113) 95 07/11/20 21:00 Room Air 07/11/20 20:00 98.2 105 18 132/83 (99) 96 07/11/20 17:30 97.5 103 20 146/83 (104) 95 07/11/20 16:00 97.7 98 20 145/74 (97) 96 Intake and Output 07/11/20 07/12/20 19:00 07:00 Intake Total 100 ml 120 ml Balance 100 ml 120 ml Intake Oral 100 ml 120 ml # Bowel Movements 1 Laboratory Tests 07/12/20 05:15: White Blood Count 6.7, Red Blood Count 3.63L, Hemoglobin 11.0L, Hematocrit 33.1L , Mean Corpuscular Volume 91, Mean Corpuscular Hemoglobin 30.3, Mean Corpuscular Hemoglobin Concent 33.2, Red Cell Distribution Width 14.9H, Platelet Count 189, Mean Platelet Volume 6.9, Neutrophils (%) (Auto) 76.2H, Lymphocytes (%) (Auto) 13.0L, Monocytes (%) (Auto) 8.9, Eosinophils (%) (Auto) 1.3, Basophils (%) (Auto) 0.5, Sodium Level 144, Potassium Level 3.0L, Chloride Level 110H, Carbon Dioxide Level 24, Anion Gap 10, Blood Urea Nitrogen 7, Creatinine 1.0, Estimat Glomerular Filtration Rate > 60, Glucose Level 111H, Hemoglobin A1c 5.4, Uric Acid 6.7, Calcium Level 10.8H, Calcium (Send out) [Pending], Phosphorus Level 3.0, Magnesium Level 1.8, Total Bilirubin 0.8, Gamma Glutamyl Transpeptidase 262H, Aspartate Amino Transf (AST/SGOT) 98H, Alanine Aminotransferase (ALT/SGPT) 25, Alkaline Phosphatase 148H, C-Reactive Protein, Quantitative 14.0H, Total Protein 5.2L, Albumin 2.1L, Globulin 3.1, Albumin/Globulin Ratio 0.7L, Vitamin B12 Level 597, Folate 2.1L, Parathyroid Hormone (Intact) [Pending] Height (Feet): 5 Height (Inches): 9.00 Weight (Pounds): 149 General Appearance: no apparent distress, lethargic Cardiovascular: tachycardia Respiratory/Chest: decreased breath sounds Abdomen: distended Godwin Deng MD Jul 12, 2020 12:48
--- NOTE | 2020-07-12 13:13 | NUR ---
NURSE NOTES: Patient is gagging and attempting to throw up. Small amount of saliva noted in container. Held oral meds at this time. Patient is upright, aspiration precautions in place. All safety measures provided. Will continue to monitor.
--- NOTE | 2020-07-12 14:43 | Internal Med Progress Note ---
Subjective Date of Service: Jul 12, 2020 Physician Name RojasRajan Attending Physician Mark Bonilla MD Current Medications Medications (Trade) Dose Ordered Sig/Anitra Route PRN Reason Start Time Stop Time Status Last Admin Dose Admin Acetaminophen (Tylenol) 650 mg Q4H PRN ORAL fever 07/09/20 20:30 08/08/20 20:29 Albuterol/ Ipratropium (Albuterol/ Ipratropium) 3 ml Q4H PRN HHN Shortness of Breath 07/09/20 20:30 07/14/20 20:29 Atorvastatin Calcium (Lipitor) 40 mg BEDTIME ORAL 07/10/20 21:00 10/08/20 20:59 Bicalutamide (Casodex) 50 mg DAILY ORAL 07/10/20 09:00 07/15/20 08:59 07/12/20 09:04 Calcitonin [place] (Miacalcin) 1 sprays DAILY NASAL 07/11/20 20:00 10/09/20 19:59 Cefepime HCl 2 gm/ Dextrose 110 ml @ 220 mls/hr EVERY 12 HOURS IV 07/09/20 21:00 07/16/20 20:59 07/11/20 09:54 Dextrose/ Electrolytes 1,000 ml @ 75 mls/hr [id number] IV 07/09/20 22:00 08/08/20 21:59 07/12/20 05:30 Gabapentin (Neurontin) 400 mg QID ORAL 07/10/20 09:00 08/09/20 08:59 07/12/20 09:00 Levothyroxine Sodium (Synthroid) 50 mcg ACBREAKFAST ORAL 07/10/20 06:30 08/09/20 06:29 07/12/20 05:41 Lisinopril (ZestriL) 10 mg DAILY ORAL 07/10/20 09:00 08/09/20 08:59 07/12/20 09:01 Ondansetron HCl (Zofran) 4 mg Q6H PRN IVP Nausea & Vomiting 07/09/20 20:30 08/08/20 20:29 Pamidronate Disodium 60 mg/ Sodium Chloride 550 ml @ 137.5 mls/ hr ONCE ONCE IVPB 07/12/20 15:00 07/12/20 18:59 Pantoprazole (Protonix) 40 mg DAILY ORAL 07/10/20 09:00 08/09/20 08:59 07/12/20 09:00 Polyethylene Glycol (Miralax) 17 gm DAILYPRN PRN ORAL Constipation 07/09/20 20:30 08/08/20 20:29 Potassium Chloride (K-Dur) 40 meq TWICE A DAY ORAL 07/12/20 10:00 10/10/20 09:59 07/12/20 10:32 Rivaroxaban (Xarelto) 20 mg DAILY ORAL 07/10/20 09:00 10/08/20 08:59 07/12/20 09:00 Tamsulosin HCl (Flomax) 0.4 mg DAILY ORAL 07/10/20 09:00 08/09/20 08:59 07/12/20 09:00 Temazepam (Restoril) 15 mg HSPRN PRN ORAL Insomnia 07/09/20 20:30 07/16/20 20:29 Allergies: Coded Allergies: No Known Allergies (Unverified , 07/09/20) ROS Limited/Unobtainable: Yes Subjective 75 YO M admitted for generalized weakness and poor PO intake. Now UTI and sepsis. Cover for Int Med- Dr Bonilla Objective Last Vital Signs Date Time Temp Pulse Resp B/P (MAP) Pulse Ox O2 Delivery O2 Flow Rate FiO2 07/12/20 12:00 97.5 99 18 141/82 (101) 94 07/12/20 09:00 Room Air Laboratory Tests Test 07/12/20 05:15 White Blood Count 6.7 K/UL (4.8-10.8) Red Blood Count 3.63 M/UL (4.70-6.10) L Hemoglobin 11.0 G/DL (14.2-18.0) L Hematocrit 33.1 % (42.0-52.0) L Mean Corpuscular Volume 91 FL (80-99) Mean Corpuscular Hemoglobin 30.3 PG (27.0-31.0) Mean Corpuscular Hemoglobin Concent 33.2 G/DL (32.0-36.0) Red Cell Distribution Width 14.9 % (11.6-14.8) H Platelet Count 189 K/UL (150-450) Mean Platelet Volume 6.9 FL (6.5-10.1) Neutrophils (%) (Auto) 76.2 % (45.0-75.0) H Lymphocytes (%) (Auto) 13.0 % (20.0-45.0) L Monocytes (%) (Auto) 8.9 % (1.0-10.0) Eosinophils (%) (Auto) 1.3 % (0.0-3.0) Basophils (%) (Auto) 0.5 % (0.0-2.0) Sodium Level 144 MMOL/L (136-145) Potassium Level 3.0 MMOL/L (3.5-5.1) L Chloride Level 110 MMOL/L (98-107) H Carbon Dioxide Level 24 MMOL/L (21-32) Anion Gap 10 mmol/L (5-15) Blood Urea Nitrogen 7 mg/dL (7-18) Creatinine 1.0 MG/DL (0.55-1.30) Estimat Glomerular Filtration Rate > 60 mL/min (>60) Glucose Level 111 MG/DL (74-106) H Hemoglobin A1c 5.4 % (4.3-6.0) Uric Acid 6.7 MG/DL (2.6-7.2) Calcium Level 10.8 MG/DL (8.5-10.1) H Calcium (Send out) Pending Phosphorus Level 3.0 MG/DL (2.5-4.9) Magnesium Level 1.8 MG/DL (1.8-2.4) Total Bilirubin 0.8 MG/DL (0.2-1.0) Gamma Glutamyl Transpeptidase 262 U/L (5-85) H Aspartate Amino Transf (AST/SGOT) 98 U/L (15-37) H Alanine Aminotransferase (ALT/SGPT) 25 U/L (12-78) Alkaline Phosphatase 148 U/L (46-116) H C-Reactive Protein, Quantitative 14.0 mg/dL (0.00-0.90) H Total Protein 5.2 G/DL (6.4-8.2) L Albumin 2.1 G/DL (3.4-5.0) L Globulin 3.1 g/dL Albumin/Globulin Ratio 0.7 (1.0-2.7) L Vitamin B12 Level 597 PG/ML (193-986) Folate 2.1 NG/ML (8.6-58.9) L Parathyroid Hormone (Intact) Pending Microbiology Date/Time Source Procedure Growth Status 07/09/20 19:00 Rectum VRE Culture - Final NO VANCOMYCIN RESISTANT ENTEROCOCCUS ... Complete 07/09/20 19:00 Rectum - Final NO CARBAPENEM-RESISTANT ENTEROBACTERI... Complete 07/09/20 19:00 Nasal Nares MRSA Culture - Final NO METHICILLIN RESISTANT STAPH AUREUS... Complete 07/09/20 17:25 Nasopharynx SARS-CoV-2 RdRp Gene Assay - Final Complete 07/09/20 17:25 Blood Blood Culture - Preliminary NO GROWTH AFTER 48 HOURS Resulted 07/09/20 17:20 Urine,Clean Catch Urine Culture - Final Pseudomonas Aeruginosa Complete 07/09/20 17:15 Blood Blood Culture - Preliminary NO GROWTH AFTER 48 HOURS Resulted Intake and Output 07/11/20 07/12/20 19:00 07:00 Intake Total 100 ml 120 ml Balance 100 ml 120 ml Intake Oral 100 ml 120 ml # Bowel Movements 1 Objective Objective GENERAL: awake and responsive, but very chronically ill-appearing. HEAD AND NECK: Pupils are equal and reactive to light. Extraocular movements are intact. Neck was supple. No JVD. LUNGS: Good air entry. No wheezing or rales. Decreased air in bases. ABDOMEN: Soft, nondistended, and nontender. Positive bowel sounds. EXTREMITIES: No cyanosis, clubbing or edema. left ankle brace noted. NEUROLOGIC: Cranial nerves II through XII grossly intact. The patient is moving upper extremities. Lower extremities weaker 4/5 strength. SKIN: He has a tattoo on the upper extremity as well as trunk area. Assessment/Plan Assessment/Plan Assessment/Plan Assessment/Plan Assessment/Plan ASSESSMENT: 1. urinary tract infection=pseudomonas aeruginosa 2. Hypokalemia. 3. Severe dehydration and prerenal azotemia. 4. Metastatic prostate cancer. 5. Gastroesophageal reflux disease. 6. Paraplegia. 7. Hypertension. 8. BPH. 9. Hypothyroidism. 10. Dyslipidemia. 11. Hypokalemia PLAN: In monitored unit. Monitor laboratory as well as culture. S/P vancomycin; continue cefepime IV. Code status is Full Code. DVT prophylaxis: Xarelto KCl supplements. IV fluid. PT mobility. ID=Dr Dennis Pulmonary/critical care=Rajan Roman MD Jul 12, 2020 14:43
[2020-07-12] MEDS ORDERED: Pamidronate Disodium Inj 60 MG in Sodium Chloride 550 ML IVPB ONE (15:00)
--- NOTE | 2020-07-12 17:46 | NUR ---
NURSE NOTES: Patient refused dressing change, repositioning, and linen change x4 during shift. Patient educated about risks and benefits. Patient continues to refuse.
--- NOTE | 2020-07-12 19:36 | NUR ---
NURSE HAND-OFF: Important Events on Shift: restraints Patient Status: stable Diet: regular Pending Orders: n/a Pending Results/Labs:n/a Pending MD notification:n/a Latest Vital Signs: Temperature 97.5 , Pulse 99 , B/P 141 /82 , Respiratory Rate 18 , O2 SAT 94 , Room Air, O2 Flow Rate . Vital Sign Comment: n/a Latest Roche Fall Score: 55 Fall Risk: High Risk Safety Measures: Call light Within Reach, Side Rails x2, Bed position Low and Locked. Fall Precautions: Yellow Socks Yellow Gown Door Sign Patient Fall Education Report given to Quin SHAY.
--- NOTE | 2020-07-12 19:53 | NUR ---
NURSES NOTE: Pt in bed, A/OX2, able to answer simple questions appropriately. Pt much more aware this NOC shift than last. Soft restraints applied to bilateral wrists. No redness, irritation, swelling or warmth noted to restraint site. Pt to be turned Q2H. New IV placed, 24 gauge, L hand. Site is patent, and infusing IVF fluids. Slight swelling to L hand noted. L hand elevated on pillow. Will be monitored. IV site will be switched if swelling worsens. All due medications will be administered. Bed at lowest level. Call light within reach. Pt will continue to be monitored.
[2020-07-12 20:00] VITALS: BP 138/81
[2020-07-12] MEDS: Atorvastatin 20mg tab ORAL SCH (21:00)
[2020-07-13 04:00] VITALS: BP 147/80
[2020-07-13] MEDS: D5 1/2NS w/KCl 20mEq 1,000 ML IV SCH (04:21)
[2020-07-13 06:38] LABS: BASOPHILS % (AUTO) 0.8 % (0.0-2.0); EOSINOPHILS % (AUTO) 1.2 % (0.0-3.0); HEMATOCRIT 32.3 % (42.0-52.0); HEMOGLOBIN 10.7 G/DL (14.2-18.0); LYMPHOCYTES % (AUTO) 14.1 % (20.0-45.0); MEAN CORPUSCULAR VOLUME 90 FL (80-99); MONOCYTES % (AUTO) 9.9 % (1.0-10.0); NEUTROPHILS % (AUTO) 73.9 % (45.0-75.0); PLATELET COUNT 178 K/UL (150-450); RED BLOOD COUNT 3.58 M/UL (4.70-6.10); RED CELL DISTRIBUTION WIDTH 15.1 % (11.6-14.8); WHITE BLOOD COUNT 6.3 K/UL (4.8-10.8)
[2020-07-13 06:45] LABS: ANION GAP 9 mmol/L (5-15); BLOOD UREA NITROGEN 8 mg/dL (7-18); CALCIUM 10.6 MG/DL (8.5-10.1); CARBON DIOXIDE 24 MMOL/L (21-32); CHLORIDE 110 MMOL/L (98-107); CREATININE 0.9 MG/DL (0.55-1.30); SODIUM 143 MMOL/L (136-145)
[2020-07-13 06:48] LABS: POTASSIUM 2.6 MMOL/L (3.5-5.1)
--- NOTE | 2020-07-13 06:54 | NUR ---
NURSE NOTES: Received report for patients lab result for potassium, 2.6, report received from jermaine Mosley. Patient had 40 mew twice a day and iv fluid running D5 1/2 ns + 20 meq @ 75 mls/hr. Will inform primary nurse.
--- NOTE | 2020-07-13 07:08 | NUR ---
NURSE HAND-OFF: Important Events on Shift:[Critical value in AM labs- potassium 2.6. Dr Bonilla called. Message left.] Patient Status: [Stable] Diet: [Regular] Pending Orders: [None] Pending Results/Labs:[None] Pending MD notification:[Waiting for call back from Dr Bonilla regarding critical lab value] Latest Vital Signs: Temperature 98.0 , Pulse 91 , B/P 147 /80 , Respiratory Rate 18 , O2 SAT 95 , Room Air, O2 Flow Rate . Vital Sign Comment: [WNL- BP runs high normal] Latest Roche Fall Score: 55 Fall Risk: High Risk Safety Measures: Call light Within Reach, Bed Alarm Zone 1, Side Rails Side Rails x2, Bed position Low and Locked. Fall Precautions: Yellow Socks Yellow Gown Door Sign Patient Fall Education Report given to [].
--- NOTE | 2020-07-13 07:40 | NUR ---
NURSE NOTES: Received report from LAURITA Tsai. Pt awake, A&O x2. Breathing even and unlabored. No s/s pain at this time. Noted with soft restraints on bilateral wrists, no redness, no swelling on restraint site. IV patent, and infusing IVF fluids. Endorsed critical lab potassium and new order received. Bed at lowest level. Call light within reach. Pt will continue to be monitored.
--- NOTE | 2020-07-13 08:06 | NUR ---
HAND OFF: Report given to LAURITA Taylor.
--- NOTE | 2020-07-13 08:10 | NUR ---
RD ASSESSMENT & RECOMMENDATIONS SEE CARE ACTIVITY FOR COMPLETE ASSESSMENT DAILY ESTIMATED NEEDS: Needs based on cancer, paraplegic/ 66.7kg 25-30 kcals/kg 8610-1149 total kcals 1-2 g protein/kg 67-134 g total protein 25-30 mL/kg 2755-8468 total fluid mLs NUTRITION DIAGNOSIS: Increased kcal/prot needs R/T catabolic dx and wound healing as evidenced by dx of metastatic prostate CA, w/ sacral wound per photo, pending eval, currently w/ poor PO, many refusing meals. CURRENT DIET:REGULAR PO DIET RECOMMENDATIONS: Maintain liberalized regular/ texture as tolerated or per [employer] ADDITIONAL RECOMMENDATIONS: * Calibrated bedscale wt * Monitor PO tolerance, rec around the clock zofran w/ consistent nausea * Ensure Enlive BID w/ meals for now, increase w/ good acceptance * Monitor lytes, replete as needed (K consistently low) * Folic acid supplement(low folate 2.1) * Consider appetite stimulant * Wound healing: Add MVI x 1, Vit C 250mg QD/ f/up w/ WC eval
[2020-07-13] MEDS: Bicalutamide 50mg tab ORAL SCH (09:00)
[2020-07-13] MEDS: Cefepime HCl 2 GM in D5W 110 ML IV SCH ×2 (10:06→20:08)
[2020-07-13] MEDS: Xarelto 10mg tab ORAL SCH (10:07)
[2020-07-13] MEDS: Lisinopril 10mg tab ORAL SCH (10:07)
[2020-07-13] MEDS: Tamsulosin 0.4mg cap ORAL SCH (10:07)
--- NOTE | 2020-07-13 11:00 | NUR ---
NURSE NOTES: Pt refused to take K dur 40meq BID and Q6HR both scheduled . Explained benefit and riskx3. Pt still refused. Dr. Bonilla and Dr. Deng aware. Received new order from Dr. Bonilla. Blanca read back. carried out.
[2020-07-13 12:00] VITALS: BP 138/80
--- NOTE | 2020-07-13 12:28 | Nephrology Progress Note ---
Assessment/Plan Problem List: (1) Hypercalcemia (2) Hypokalemia (3) Prostate cancer (4) History of hypertension Assessment Hypercalcemia, more pronounced when corrected for hypoalbuminemia Hypokalemia Metastatic prostate cancer Sepsis/UTI Abnormal elevated LFTs Protein calorie malnutrition Hypertension Hypothyroidism Paraplegia Plan July 13: Received pamidronate yesterday. Will increase oral potassium supplement. Continue to monitor electrolytes and chemistries. Trial of 1 dose of pamidronate for hyper Calcemia. Oral potassium chloride Continue to hydrate Check PTH level, pending Phosphorus supplement Nasal calcitonin Monitor calcium and phosphorus and electrolytes Per orders Subjective ROS Limited/Unobtainable: No Constitutional: Reports: malaise Objective Objective Last 24 Hour Vital Signs Date Time Temp Pulse Resp B/P (MAP) Pulse Ox O2 Delivery O2 Flow Rate FiO2 07/13/20 10:07 147/80 07/13/20 04:00 98.0 91 18 147/80 (102) 95 07/12/20 21:00 Room Air 07/12/20 20:00 98.3 96 18 138/81 (100) 94 Intake and Output 07/12/20 07/13/20 19:00 07:00 Intake Total 100 ml 80 ml Output Total 600 ml 435 ml Balance -500 ml -355 ml Intake Oral 100 ml 80 ml Output Urine Total 600 ml 435 ml Current Medications Medications (Trade) Dose Ordered Sig/Anitra Route PRN Reason Start Time Stop Time Status Last Admin Dose Admin Acetaminophen (Tylenol) 650 mg Q4H PRN ORAL fever 07/09/20 20:30 08/08/20 20:29 Albuterol/ Ipratropium (Albuterol/ Ipratropium) 3 ml Q4H PRN HHN Shortness of Breath 07/09/20 20:30 07/14/20 20:29 07/12/20 20:03 Atorvastatin Calcium (Lipitor) 40 mg BEDTIME ORAL 07/10/20 21:00 10/08/20 20:59 Bicalutamide (Casodex) 50 mg DAILY ORAL 07/10/20 09:00 07/15/20 08:59 07/13/20 09:00 Calcitonin [place] (Miacalcin) 1 sprays DAILY NASAL 07/11/20 20:00 10/09/20 19:59 07/13/20 09:00 Cefepime HCl 2 gm/ Dextrose 110 ml @ 220 mls/hr EVERY 12 HOURS IV 07/09/20 21:00 07/16/20 20:59 07/13/20 10:06 Dextrose/ Electrolytes 1,000 ml @ 75 mls/hr [id number] IV 07/09/20 22:00 08/08/20 21:59 07/13/20 04:21 Gabapentin (Neurontin) 400 mg QID ORAL 07/10/20 09:00 08/09/20 08:59 07/13/20 10:06 Levothyroxine Sodium (Synthroid) 50 mcg ACBREAKFAST ORAL 07/10/20 06:30 08/09/20 06:29 07/12/20 05:41 Lisinopril (ZestriL) 10 mg DAILY ORAL 07/10/20 09:00 08/09/20 08:59 07/13/20 10:07 Ondansetron HCl (Zofran) 4 mg Q6H PRN IVP Nausea & Vomiting 07/09/20 20:30 08/08/20 20:29 Pantoprazole (Protonix) 40 mg DAILY ORAL 07/10/20 09:00 08/09/20 08:59 07/13/20 10:07 Polyethylene Glycol (Miralax) 17 gm DAILYPRN PRN ORAL Constipation 07/09/20 20:30 08/08/20 20:29 Potassium Chloride (K-Dur) 40 meq Q6H ORAL 07/13/20 10:15 07/13/20 16:16 07/13/20 10:16 Potassium Chloride (K-Dur) 40 meq TWICE A DAY ORAL 07/12/20 10:00 10/10/20 09:59 07/13/20 10:07 Rivaroxaban (Xarelto) 20 mg DAILY ORAL 07/10/20 09:00 10/08/20 08:59 07/13/20 10:07 Tamsulosin HCl (Flomax) 0.4 mg DAILY ORAL 07/10/20 09:00 08/09/20 08:59 07/13/20 10:07 Temazepam (Restoril) 15 mg HSPRN PRN ORAL Insomnia 07/09/20 20:30 07/16/20 20:29 Laboratory Tests 07/13/20 05:20: White Blood Count 6.3, Red Blood Count 3.58L, Hemoglobin 10.7L, Hematocrit 32.3L , Mean Corpuscular Volume 90, Mean Corpuscular Hemoglobin 29.8, Mean Corpuscular Hemoglobin Concent 33.0, Red Cell Distribution Width 15.1H, Platelet Count 178, Mean Platelet Volume 7.1, Neutrophils (%) (Auto) 73.9, Lymphocytes (%) (Auto) 14.1L, Monocytes (%) (Auto) 9.9, Eosinophils (%) (Auto) 1.2, Basophils (%) (Auto) 0.8, Sodium Level 143, Potassium Level 2.6*L, Chloride Level 110H, Carbon Dioxide Level 24, Anion Gap 9, Blood Urea Nitrogen 8, Creatinine 0.9, Estimat Glomerular Filtration Rate > 60, Glucose Level 107H, Calcium Level 10.6H Height (Feet): 5 Height (Inches): 9.00 Weight (Pounds): 149 General Appearance: no apparent distress Cardiovascular: tachycardia Respiratory/Chest: decreased breath sounds Abdomen: distended Objective No change Godwin Deng MD Jul 13, 2020 12:28
--- NOTE | 2020-07-13 13:04 | Infectious Diseases Prog Note ---
Assessment/Plan Assessment: COVID19 neg x (07/09 rapid COVID PCR neg) -CXR: Patchy right basilar opacities which may represent atelectasis however pneumonia notexcluded. Clinical correlation and followup recommended. Sepsis UTI -u/a wbc 20-30, nit neg, leuk +2; ucx >100k PsA ([place]) -Bcx NTD Afebrile No leukocytosis Hypernatremia Hypokalemia HTN BPH GERD HLD paraplegia hypothyroidism metastatic Prostate CA RETIREMENT resident (Talisha Anand Pittsvilleyajaira) Plan: -Continue empiric Cefepime #5/7 for PsA UTI -upon discharge, can be transition to PO Levaquin 500mg qd -07/12 SP IV Vancomycin #2 -07/09 SP Meropenem x1 -f/u cx -Monitor CBC/CMP, temperatures -aspiration precautions Thank you for consulting [facility]. Will continue to follow along with you. Discussed with RN. Subjective Allergies: Coded Allergies: No Known Allergies (Unverified , 07/09/20) afebrile no leukocytosis Objective Last 24 Hour Vital Signs Date Time Temp Pulse Resp B/P (MAP) Pulse Ox O2 Delivery O2 Flow Rate FiO2 07/13/20 10:07 147/80 07/13/20 04:00 98.0 91 18 147/80 (102) 95 07/12/20 21:00 Room Air 07/12/20 20:00 98.3 96 18 138/81 (100) 94 Height (Feet): 5 Height (Inches): 9.00 Weight (Pounds): 149 Laboratory Tests Test 07/13/20 05:20 White Blood Count 6.3 K/UL (4.8-10.8) Red Blood Count 3.58 M/UL (4.70-6.10) L Hemoglobin 10.7 G/DL (14.2-18.0) L Hematocrit 32.3 % (42.0-52.0) L Mean Corpuscular Volume 90 FL (80-99) Mean Corpuscular Hemoglobin 29.8 PG (27.0-31.0) Mean Corpuscular Hemoglobin Concent 33.0 G/DL (32.0-36.0) Red Cell Distribution Width 15.1 % (11.6-14.8) H Platelet Count 178 K/UL (150-450) Mean Platelet Volume 7.1 FL (6.5-10.1) Neutrophils (%) (Auto) 73.9 % (45.0-75.0) Lymphocytes (%) (Auto) 14.1 % (20.0-45.0) L Monocytes (%) (Auto) 9.9 % (1.0-10.0) Eosinophils (%) (Auto) 1.2 % (0.0-3.0) Basophils (%) (Auto) 0.8 % (0.0-2.0) Sodium Level 143 MMOL/L (136-145) Potassium Level 2.6 MMOL/L (3.5-5.1) *L Chloride Level 110 MMOL/L (98-107) H Carbon Dioxide Level 24 MMOL/L (21-32) Anion Gap 9 mmol/L (5-15) Blood Urea Nitrogen 8 mg/dL (7-18) Creatinine 0.9 MG/DL (0.55-1.30) Estimat Glomerular Filtration Rate > 60 mL/min (>60) Glucose Level 107 MG/DL (74-106) H Calcium Level 10.6 MG/DL (8.5-10.1) H Current Medications Medications (Trade) Dose Ordered Sig/Anitra Route PRN Reason Start Time Stop Time Status Last Admin Dose Admin Acetaminophen (Tylenol) 650 mg Q4H PRN ORAL fever 07/09/20 20:30 08/08/20 20:29 Albuterol/ Ipratropium (Albuterol/ Ipratropium) 3 ml Q4H PRN HHN Shortness of Breath 07/09/20 20:30 07/14/20 20:29 07/12/20 20:03 Atorvastatin Calcium (Lipitor) 40 mg BEDTIME ORAL 07/10/20 21:00 10/08/20 20:59 Bicalutamide (Casodex) 50 mg DAILY ORAL 07/10/20 09:00 07/15/20 08:59 07/13/20 09:00 Calcitonin [place] (Miacalcin) 1 sprays DAILY NASAL 07/11/20 20:00 10/09/20 19:59 07/13/20 09:00 Cefepime HCl 2 gm/ Dextrose 110 ml @ 220 mls/hr EVERY 12 HOURS IV 07/09/20 21:00 07/16/20 20:59 07/13/20 10:06 Dextrose/ Electrolytes 1,000 ml @ 75 mls/hr [id number] IV 07/13/20 14:00 08/12/20 13:59 Furosemide (Lasix) 20 mg ONCE IV 07/13/20 17:00 07/13/20 19:00 Gabapentin (Neurontin) 400 mg QID ORAL 07/10/20 09:00 08/09/20 08:59 07/13/20 10:06 Levothyroxine Sodium (Synthroid) 50 mcg ACBREAKFAST ORAL 07/10/20 06:30 08/09/20 06:29 07/12/20 05:41 Lisinopril (ZestriL) 10 mg DAILY ORAL 07/10/20 09:00 08/09/20 08:59 07/13/20 10:07 Ondansetron HCl (Zofran) 4 mg Q6H PRN IVP Nausea & Vomiting 07/09/20 20:30 08/08/20 20:29 Pantoprazole (Protonix) 40 mg DAILY ORAL 07/10/20 09:00 08/09/20 08:59 07/13/20 10:07 Polyethylene Glycol (Miralax) 17 gm DAILYPRN PRN ORAL Constipation 07/09/20 20:30 08/08/20 20:29 Potassium Chloride (K-Dur) 40 meq Q6H ORAL 07/13/20 10:15 07/13/20 16:16 Potassium Chloride (K-Dur) 40 meq TID ORAL 07/13/20 12:30 10/10/20 09:59 Rivaroxaban (Xarelto) 20 mg DAILY ORAL 07/10/20 09:00 10/08/20 08:59 07/13/20 10:07 Tamsulosin HCl (Flomax) 0.4 mg DAILY ORAL 07/10/20 09:00 08/09/20 08:59 07/13/20 10:07 Temazepam (Restoril) 15 mg HSPRN PRN ORAL Insomnia 07/09/20 20:30 07/16/20 20:29 Bonnie Nixon M.D. Jul 13, 2020 13:04
--- NOTE | 2020-07-13 13:36 | Pulmonology Progress Note ---
Subjective ROS Limited/Unobtainable: No Allergies: Coded Allergies: No Known Allergies (Unverified , 07/09/20) Objective Last 24 Hour Vital Signs Date Time Temp Pulse Resp B/P (MAP) Pulse Ox O2 Delivery O2 Flow Rate FiO2 07/13/20 10:07 147/80 07/13/20 04:00 98.0 91 18 147/80 (102) 95 07/12/20 21:00 Room Air 07/12/20 20:00 98.3 96 18 138/81 (100) 94 Intake and Output 07/12/20 07/13/20 19:00 07:00 Intake Total 100 ml 80 ml Output Total 600 ml 435 ml Balance -500 ml -355 ml Intake Oral 100 ml 80 ml Output Urine Total 600 ml 435 ml General Appearance: no acute distress HEENT: normocephalic, atraumatic, anicteric, mucous membranes moist Respiratory: no respiratory distress, no accessory muscle use, decreased breath sounds Cardiovascular: normal rate, regular rhythm Abdomen: soft, non tender, non distended Extremities: no edema, pedal pulses normal Skin: other - multiple tattoos BL upper arms and trunk Neurologic: abnormal gait, alert, oriented x 3, responsive, other - muscle strendgth BLE / Laboratory Tests 07/13/20 05:20: White Blood Count 6.3, Red Blood Count 3.58L, Hemoglobin 10.7L, Hematocrit 32.3L , Mean Corpuscular Volume 90, Mean Corpuscular Hemoglobin 29.8, Mean Corpuscular Hemoglobin Concent 33.0, Red Cell Distribution Width 15.1H, Platelet Count 178, Mean Platelet Volume 7.1, Neutrophils (%) (Auto) 73.9, Lymphocytes (%) (Auto) 14.1L, Monocytes (%) (Auto) 9.9, Eosinophils (%) (Auto) 1.2, Basophils (%) (Auto) 0.8, Sodium Level 143, Potassium Level 2.6*L, Chloride Level 110H, Carbon Dioxide Level 24, Anion Gap 9, Blood Urea Nitrogen 8, Creatinine 0.9, Estimat Glomerular Filtration Rate > 60, Glucose Level 107H, Calcium Level 10.6H Current Medications Medications (Trade) Dose Ordered Sig/Anitra Route PRN Reason Start Time Stop Time Status Last Admin Dose Admin Acetaminophen (Tylenol) 650 mg Q4H PRN ORAL fever 07/09/20 20:30 08/08/20 20:29 Albuterol/ Ipratropium (Albuterol/ Ipratropium) 3 ml Q4H PRN HHN Shortness of Breath 07/09/20 20:30 07/14/20 20:29 07/12/20 20:03 Atorvastatin Calcium (Lipitor) 40 mg BEDTIME ORAL 07/10/20 21:00 10/08/20 20:59 Bicalutamide (Casodex) 50 mg DAILY ORAL 07/10/20 09:00 07/15/20 08:59 07/13/20 09:00 Calcitonin [place] (Miacalcin) 1 sprays DAILY NASAL 07/11/20 20:00 10/09/20 19:59 07/13/20 09:00 Cefepime HCl 2 gm/ Dextrose 110 ml @ 220 mls/hr EVERY 12 HOURS IV 07/09/20 21:00 07/16/20 20:59 07/13/20 10:06 Dextrose/ Electrolytes 1,000 ml @ 75 mls/hr [id number] IV 07/13/20 14:00 08/12/20 13:59 Furosemide (Lasix) 20 mg ONCE IV 07/13/20 17:00 07/13/20 19:00 Gabapentin (Neurontin) 400 mg QID ORAL 07/10/20 09:00 08/09/20 08:59 07/13/20 13:28 Levothyroxine Sodium (Synthroid) 50 mcg ACBREAKFAST ORAL 07/10/20 06:30 08/09/20 06:29 07/12/20 05:41 Lisinopril (ZestriL) 10 mg DAILY ORAL 07/10/20 09:00 08/09/20 08:59 07/13/20 10:07 Ondansetron HCl (Zofran) 4 mg Q6H PRN IVP Nausea & Vomiting 07/09/20 20:30 08/08/20 20:29 Pantoprazole (Protonix) 40 mg DAILY ORAL 07/10/20 09:00 08/09/20 08:59 07/13/20 10:07 Polyethylene Glycol (Miralax) 17 gm DAILYPRN PRN ORAL Constipation 07/09/20 20:30 08/08/20 20:29 Potassium Chloride 100 ml @ 100 mls/hr NOW ONCE IVPB 10/26/20 13:45 07/13/20 14:44 UNV Potassium Chloride (K-Dur) 40 meq TID ORAL 07/13/20 12:30 10/10/20 09:59 07/13/20 13:00 Rivaroxaban (Xarelto) 20 mg DAILY ORAL 07/10/20 09:00 10/08/20 08:59 07/13/20 10:07 Tamsulosin HCl (Flomax) 0.4 mg DAILY ORAL 07/10/20 09:00 08/09/20 08:59 07/13/20 10:07 Temazepam (Restoril) 15 mg HSPRN PRN ORAL Insomnia 07/09/20 20:30 07/16/20 20:29 Assessment/Plan Problems: (1) Pyelonephritis (2) Hypokalemia (3) Protein-calorie malnutrition, severe (4) Prostate cancer (5) History of hypertension Assessment/Plan all reviewed repeat CXR in Am iv abx, on Ceftriaxone IV fluids supplement K again monitor BP f/u on PSA symptomatic treatment dvt prophylaxis. Judy Oliver MD Jul 13, 2020 13:36
--- NOTE | 2020-07-13 14:11 | Diagnostic Imaging Report ---
Indication: Shortness of breath Technique: One view of the chest Comparison: 07/09/2020 Findings: Hazy opacities right mid and lower lung are noted, increased since previous exam. Increasingly obscured hemidiaphragm, likely related to the above, but could also indicate pleural fluid. The heart size is normal. There is a right chest port catheter again noted. Impression: Increased right mid and lower lung hazy opacities, likely infiltrates Possible right pleural effusion
[2020-07-13] MEDS: D5 1/2NS w/KCl 40meq 1000ml 1,000 ML IV SCH (14:13)
[2020-07-13 15:53] VITALS: BP 145/89
--- NOTE | 2020-07-13 16:47 | NUR ---
CASE MANAGEMENT:REVIEW SI;SEPSIS. PYELONEPHRITIS. HYPOKALEMIA. 98.3 98 18 147/80 95% ON RA H/H 10.7/32.3 K+ 2.6 CA 10.6 IS;IVF D5W @ 75 ML/HR KCL IV K-DUR PO TID PAMIDRONATE DISODIUM/NS IN ONCE XARELTO PO QD ZESTRIL PO QD CASODEX PO QD PROTONIX PO QD SYNTHROID PO QD CEFEPIME IV Q12 MED SURG STATUS DCP;FROM [facility]
[2020-07-13] MEDS ORDERED: Albuterol/Ipratropium 3ml neb HHN PRN (17:30)
--- NOTE | 2020-07-13 18:06 | NUR ---
NURSE NOTES: Pt refused oral meds scheduled at 1800. explained benefit and risk and offered med mixed with apple sauce. Pt still refused.
--- NOTE | 2020-07-13 18:59 | Internal Med Progress Note ---
Subjective Date of Service: Jul 13, 2020 Physician Name RojasRajan Attending Physician Mark Bonilla MD Current Medications Medications (Trade) Dose Ordered Sig/Anitra Route PRN Reason Start Time Stop Time Status Last Admin Dose Admin Acetaminophen (Tylenol) 650 mg Q4H PRN ORAL fever 07/09/20 20:30 08/08/20 20:29 Albuterol/ Ipratropium (Albuterol/ Ipratropium) 3 ml Q4H PRN HHN Shortness of Breath 07/13/20 17:30 07/18/20 17:29 Atorvastatin Calcium (Lipitor) 40 mg BEDTIME ORAL 07/10/20 21:00 10/08/20 20:59 Bicalutamide (Casodex) 50 mg DAILY ORAL 07/10/20 09:00 07/15/20 08:59 07/13/20 09:00 Calcitonin [place] (Miacalcin) 1 sprays DAILY NASAL 07/11/20 20:00 10/09/20 19:59 07/13/20 09:00 Cefepime HCl 2 gm/ Dextrose 110 ml @ 220 mls/hr EVERY 12 HOURS IV 07/09/20 21:00 07/16/20 20:59 07/13/20 10:06 Dextrose/ Electrolytes 1,000 ml @ 75 mls/hr [id number] IV 07/13/20 14:00 08/12/20 13:59 07/13/20 14:13 Furosemide (Lasix) 20 mg ONCE IV 07/13/20 17:00 07/13/20 19:00 07/13/20 17:49 Gabapentin (Neurontin) 400 mg QID ORAL 07/10/20 09:00 08/09/20 08:59 07/13/20 13:28 Levothyroxine Sodium (Synthroid) 50 mcg ACBREAKFAST ORAL 07/10/20 06:30 08/09/20 06:29 07/12/20 05:41 Lisinopril (ZestriL) 10 mg DAILY ORAL 07/10/20 09:00 08/09/20 08:59 07/13/20 10:07 Ondansetron HCl (Zofran) 4 mg Q6H PRN IVP Nausea & Vomiting 07/09/20 20:30 08/08/20 20:29 Pantoprazole (Protonix) 40 mg DAILY ORAL 07/10/20 09:00 08/09/20 08:59 07/13/20 10:07 Polyethylene Glycol (Miralax) 17 gm DAILYPRN PRN ORAL Constipation 07/09/20 20:30 08/08/20 20:29 Potassium Chloride (K-Dur) 40 meq TID ORAL 07/13/20 12:30 10/10/20 09:59 07/13/20 12:30 Rivaroxaban (Xarelto) 20 mg DAILY ORAL 07/10/20 09:00 10/08/20 08:59 07/13/20 10:07 Tamsulosin HCl (Flomax) 0.4 mg DAILY ORAL 07/10/20 09:00 08/09/20 08:59 07/13/20 10:07 Temazepam (Restoril) 15 mg HSPRN PRN ORAL Insomnia 07/09/20 20:30 07/16/20 20:29 Allergies: Coded Allergies: No Known Allergies (Unverified , 07/09/20) ROS Limited/Unobtainable: Yes Subjective 75 YO M admitted for generalized weakness and poor PO intake. Now UTI and sepsis. Cover for Int Med- Dr Bonilla Objective Last Vital Signs Date Time Temp Pulse Resp B/P (MAP) Pulse Ox O2 Delivery O2 Flow Rate FiO2 07/13/20 15:53 97.2 97 18 145/89 (107) 98 07/13/20 09:00 Room Air Laboratory Tests Test 07/13/20 05:20 White Blood Count 6.3 K/UL (4.8-10.8) Red Blood Count 3.58 M/UL (4.70-6.10) L Hemoglobin 10.7 G/DL (14.2-18.0) L Hematocrit 32.3 % (42.0-52.0) L Mean Corpuscular Volume 90 FL (80-99) Mean Corpuscular Hemoglobin 29.8 PG (27.0-31.0) Mean Corpuscular Hemoglobin Concent 33.0 G/DL (32.0-36.0) Red Cell Distribution Width 15.1 % (11.6-14.8) H Platelet Count 178 K/UL (150-450) Mean Platelet Volume 7.1 FL (6.5-10.1) Neutrophils (%) (Auto) 73.9 % (45.0-75.0) Lymphocytes (%) (Auto) 14.1 % (20.0-45.0) L Monocytes (%) (Auto) 9.9 % (1.0-10.0) Eosinophils (%) (Auto) 1.2 % (0.0-3.0) Basophils (%) (Auto) 0.8 % (0.0-2.0) Sodium Level 143 MMOL/L (136-145) Potassium Level 2.6 MMOL/L (3.5-5.1) *L Chloride Level 110 MMOL/L (98-107) H Carbon Dioxide Level 24 MMOL/L (21-32) Anion Gap 9 mmol/L (5-15) Blood Urea Nitrogen 8 mg/dL (7-18) Creatinine 0.9 MG/DL (0.55-1.30) Estimat Glomerular Filtration Rate > 60 mL/min (>60) Glucose Level 107 MG/DL (74-106) H Calcium Level 10.6 MG/DL (8.5-10.1) H Intake and Output 07/12/20 07/13/20 19:00 07:00 Intake Total 100 ml 80 ml Output Total 600 ml 435 ml Balance -500 ml -355 ml Intake Oral 100 ml 80 ml Output Urine Total 600 ml 435 ml Objective Objective GENERAL: awake and responsive, but very chronically ill-appearing. HEAD AND NECK: Pupils are equal and reactive to light. Extraocular movements are intact. Neck was supple. No JVD. LUNGS: Good air entry. No wheezing or rales. Decreased air in bases. ABDOMEN: Soft, nondistended, and nontender. Positive bowel sounds. EXTREMITIES: No cyanosis, clubbing or edema. left ankle brace noted. NEUROLOGIC: Cranial nerves II through XII grossly intact. The patient is moving upper extremities. Lower extremities weaker 4/5 strength. SKIN: He has a tattoo on the upper extremity as well as trunk area. Assessment/Plan Assessment/Plan Assessment/Plan Assessment/Plan Assessment/Plan ASSESSMENT: 1. urinary tract infection=pseudomonas aeruginosa 2. Hypokalemia. 3. Severe dehydration and prerenal azotemia. 4. Metastatic prostate cancer. 5. Gastroesophageal reflux disease. 6. Paraplegia. 7. Hypertension. 8. BPH. 9. Hypothyroidism. 10. Dyslipidemia. 11. Hypokalemia PLAN: Monitor laboratory as well as culture. S/P vancomycin; continue cefepime IV. Code status is Full Code. DVT prophylaxis: Xarelto KCl supplements. IV fluid. PT mobility. ID=Dr Dennis Pulmonary/critical care=Rajan Roman MD Jul 13, 2020 18:59
--- NOTE | 2020-07-13 19:32 | NUR ---
NURSE HAND-OFF: Important Events on Shift:[Critical potassium 2.6, KCl 40meqIV done, Refused po intake and med, new order for non violent restraints] Patient Status: [weak] Diet: [reg] Pending Orders: [] Pending Results/Labs:[] Pending MD notification:[] Latest Vital Signs: Temperature 97.2 , Pulse 97 , B/P 145 /89 , Respiratory Rate 18 , O2 SAT 98 , Room Air, O2 Flow Rate . Vital Sign Comment: [stable] Latest Roche Fall Score: 55 Fall Risk: High Risk Safety Measures: Call light Within Reach, Bed Alarm Zone 1, Side Rails Side Rails x2, Bed position Low and Locked. Fall Precautions: Yellow Socks Yellow Gown Door Sign Patient Fall Education Report given to [LAURITA Colon].
--- NOTE | 2020-07-13 19:33 | NUR ---
NURSE NOTES: Received report & pt from LAURITA Taylor. Pt in bed, a&ox2, in room air. No s/s of acute distress & no c/o pain at this time. Condom cath noted & secured to leg. IV site intact with IVF running as ordered. B/L soft wrist restraints noted. Circulation checked. Bed in lowest position, call light within reach. Will continue to monitor.
[2020-07-13 20:00] VITALS: BP 143/84
[2020-07-13] MEDS: Atorvastatin 20mg tab ORAL SCH ×2 (20:08→20:22)
--- NOTE | 2020-07-13 20:22 | NUR ---
NURSE NOTES: Pt refused scheduled PO meds. Pt states, "No. No, please". Provided education, risks & benefits. RN offered water & juice but pt continued to refuse.
[2020-07-14] MEDS: D5 1/2NS w/KCl 40meq 1000ml 1,000 ML IV SCH (03:17)
[2020-07-14 03:48] VITALS: BP 140/81
[2020-07-14 05:31] LABS: ALANINE AMINOTRANSFERASE 27 U/L (12-78); ALBUMIN 2.1 G/DL (3.4-5.0); ALBUMIN/GLOBULIN RATIO 0.6 (1.0-2.7); ALKALINE PHOSPHATASE 152 U/L (46-116); ANION GAP 9 mmol/L (5-15); ASPARTATE AMINO TRANSFERASE 95 U/L (15-37); BILIRUBIN,TOTAL 0.8 MG/DL (0.2-1.0); BLOOD UREA NITROGEN 7 mg/dL (7-18); CALCIUM 10.4 MG/DL (8.5-10.1); CARBON DIOXIDE 22 MMOL/L (21-32); CHLORIDE 110 MMOL/L (98-107); CREATININE 0.9 MG/DL (0.55-1.30); PHOSPHORUS 2.4 MG/DL (2.5-4.9); POTASSIUM 4.4 MMOL/L (3.5-5.1); SODIUM 141 MMOL/L (136-145)
--- NOTE | 2020-07-14 06:44 | NUR ---
NURSE HAND-OFF: Important Events on Shift:refused PO meds, refused all oral intake (water/juice) Patient Status: weak Diet: Regular Pending Orders: Chest Xray Pending Results/Labs:none Pending MD notification: Latest Vital Signs: Temperature 96.5 , Pulse 98 , B/P 140 /81 , Respiratory Rate 16 , O2 SAT 96 , Room Air, O2 Flow Rate . Vital Sign Comment: Latest Roche Fall Score: 70 Fall Risk: High Risk Safety Measures: Call light Within Reach, Bed Alarm Zone 1, Side Rails Side Rails x2, Bed position Low and Locked. Fall Precautions: Yellow Socks Yellow Gown Door Sign Patient Fall Education Report given to . Addendum: 07/14/20 at 0728 by Darlene Rhodes RN Report given to LAURITA Siegel.
[2020-07-14 08:00] VITALS: BP 158/96
--- NOTE | 2020-07-14 08:02 | NUR ---
NURSE NOTES: Received report from Darlene SHAY, pt sleeping in bed with no signs of distress. IV on the right wrist gauge #22 running D5 1/2 NS @75ml/hr. call light within reach, bed in lowest position. side rales up x2. I will f/u as needed.
[2020-07-14] MEDS: Cefepime HCl 2 GM in D5W 110 ML IV SCH (08:17)
[2020-07-14] MEDS: Lisinopril 10mg tab ORAL SCH (08:20)
[2020-07-14] MEDS: Xarelto 10mg tab ORAL SCH (08:21)
[2020-07-14] MEDS: Tamsulosin 0.4mg cap ORAL SCH (08:21)
[2020-07-14] MEDS: Bicalutamide 50mg tab ORAL SCH (08:21)
[2020-07-14 08:52] LABS: EOSINOPHILS % (AUTO) 1.7 % (0.0-3.0); HEMATOCRIT 33.6 % (42.0-52.0); HEMOGLOBIN 11.4 G/DL (14.2-18.0); LYMPHOCYTES % (AUTO) 13.8 % (20.0-45.0); MEAN CORPUSCULAR VOLUME 91 FL (80-99); MONOCYTES % (AUTO) 8.8 % (1.0-10.0); NEUTROPHILS % (AUTO) 74.7 % (45.0-75.0); PLATELET COUNT 174 K/UL (150-450); RED CELL DISTRIBUTION WIDTH 15.8 % (11.6-14.8); WHITE BLOOD COUNT 7.4 K/UL (4.8-10.8)
[2020-07-14] MEDS ORDERED: Sodium Phosphate 30 MM in NS 275 ML IVPB SCH (09:00)
--- NOTE | 2020-07-14 09:14 | NUR ---
NURSE NOTES: Spoke to regarding patient and new pressure release mattress order received. Order read back and carried out.
--- NOTE | 2020-07-14 09:49 | Nephrology Progress Note ---
Assessment/Plan Problem List: (1) Hypercalcemia (2) Hypokalemia (3) Prostate cancer (4) History of hypertension Assessment Hypercalcemia, more pronounced when corrected for hypoalbuminemia Hypokalemia Metastatic prostate cancer Sepsis/UTI Abnormal elevated LFTs Protein calorie malnutrition Hypertension Hypothyroidism Paraplegia Plan July 14: Labs reviewed. Serum calcium slightly lower however remains higher than expected. Electrolytes reviewed. Low phosphorus and low magnesium addressed. Continue to monitor chemistries and electrolytes. Check PTH related protein. IV Lasix once ordered. July 13: Received pamidronate yesterday. Will increase oral potassium supplement. Continue to monitor electrolytes and chemistries. Trial of 1 dose of pamidronate for hyper Calcemia. Oral potassium chloride Continue to hydrate Check PTH level, pending Phosphorus supplement Nasal calcitonin Monitor calcium and phosphorus and electrolytes Per orders Subjective ROS Limited/Unobtainable: No Constitutional: Reports: malaise Objective Objective Last 24 Hour Vital Signs Date Time Temp Pulse Resp B/P (MAP) Pulse Ox O2 Delivery O2 Flow Rate FiO2 07/14/20 08:20 158/96 07/14/20 03:48 96.5 98 16 140/81 (100) 96 07/13/20 21:00 Room Air 07/13/20 20:00 96.9 108 16 143/84 (103) 97 07/13/20 15:53 97.2 97 18 145/89 (107) 98 07/13/20 12:00 97.8 98 18 138/80 (99) 95 07/13/20 10:07 147/80 Intake and Output 07/13/20 07/14/20 19:00 07:00 Intake Total 50 ml 900 ml Output Total 700 ml 1300 ml Balance -650 ml -400 ml Intake Oral 50 ml IV Total 900 ml Output Urine Total 700 ml 1300 ml # Bowel Movements 1 Current Medications Medications (Trade) Dose Ordered Sig/Anitra Route PRN Reason Start Time Stop Time Status Last Admin Dose Admin Acetaminophen (Tylenol) 650 mg Q4H PRN ORAL fever 07/09/20 20:30 08/08/20 20:29 Albuterol/ Ipratropium (Albuterol/ Ipratropium) 3 ml Q4H PRN HHN Shortness of Breath 07/13/20 17:30 07/18/20 17:29 Atorvastatin Calcium (Lipitor) 40 mg BEDTIME ORAL 07/10/20 21:00 10/08/20 20:59 Bicalutamide (Casodex) 50 mg DAILY ORAL 07/10/20 09:00 07/15/20 08:59 07/14/20 08:21 Calcitonin [place] (Miacalcin) 1 sprays DAILY NASAL 07/11/20 20:00 10/09/20 19:59 07/14/20 08:23 Cefepime HCl 2 gm/ Dextrose 110 ml @ 220 mls/hr EVERY 12 HOURS IV 07/09/20 21:00 07/16/20 20:59 07/14/20 08:17 Dextrose/ Electrolytes 1,000 ml @ 75 mls/hr [id number] IV 07/13/20 14:00 08/12/20 13:59 07/14/20 03:17 Gabapentin (Neurontin) 400 mg QID ORAL 07/10/20 09:00 08/09/20 08:59 07/14/20 08:21 Levothyroxine Sodium (Synthroid) 50 mcg ACBREAKFAST ORAL 07/10/20 06:30 08/09/20 06:29 07/12/20 05:41 Lisinopril (ZestriL) 10 mg DAILY ORAL 07/10/20 09:00 08/09/20 08:59 07/14/20 08:20 Magnesium Sulfate 100 ml @ 100 mls/hr Q1H IVPB 07/14/20 08:00 07/14/20 09:59 07/14/20 09:40 Ondansetron HCl (Zofran) 4 mg Q6H PRN IVP Nausea & Vomiting 07/09/20 20:30 08/08/20 20:29 Pantoprazole (Protonix) 40 mg DAILY ORAL 07/10/20 09:00 08/09/20 08:59 07/14/20 08:21 Polyethylene Glycol (Miralax) 17 gm DAILYPRN PRN ORAL Constipation 07/09/20 20:30 08/08/20 20:29 Rivaroxaban (Xarelto) 20 mg DAILY ORAL 07/10/20 09:00 10/08/20 08:59 07/14/20 08:21 Sodium Phosphate 30 mm/Sodium Chloride 285 ml @ 47.5 mls/hr ONCE IVPB 07/14/20 09:00 07/14/20 11:00 07/14/20 09:06 Tamsulosin HCl (Flomax) 0.4 mg DAILY ORAL 07/10/20 09:00 08/09/20 08:59 07/14/20 08:21 Temazepam (Restoril) 15 mg HSPRN PRN ORAL Insomnia 07/09/20 20:30 07/16/20 20:29 Laboratory Tests 07/14/20 04:30: Sodium Level 141, Potassium Level 4.4#, Chloride Level 110H, Carbon Dioxide Level 22, Anion Gap 9, Blood Urea Nitrogen 7, Creatinine 0.9, Estimat Glomerular Filtration Rate > 60, Glucose Level 119H, Uric Acid 6.1, Calcium Level 10.4H, Phosphorus Level 2.4L, Magnesium Level 1.7L, Total Bilirubin 0.8, Aspartate Amino Transf (AST/SGOT) 95H, Alanine Aminotransferase (ALT/SGPT) 27, Alkaline Phosphatase 152H, Total Protein 5.4L, Albumin 2.1L, Globulin 3.3, Albumin/Globulin Ratio 0.6L 07/14/20 08:25: White Blood Count 7.4, Red Blood Count 3.70L, Hemoglobin 11.4L, Hematocrit 33.6L , Mean Corpuscular Volume 91, Mean Corpuscular Hemoglobin 30.9, Mean Corpuscular Hemoglobin Concent 34.0, Red Cell Distribution Width 15.8H, Platelet Count 174, Mean Platelet Volume 7.1, Neutrophils (%) (Auto) 74.7, Lymphocytes (%) (Auto) 13.8L, Monocytes (%) (Auto) 8.8, Eosinophils (%) (Auto) 1.7, Basophils (%) (Auto) 1.0, Erythrocyte Sedimentation Rate [Pending], C-Reactive Protein, Quantitative 7.4H Height (Feet): 5 Height (Inches): 9.00 Weight (Pounds): 149 General Appearance: no apparent distress Objective No change Godwin Deng MD Jul 14, 2020 09:49
[2020-07-14 12:00] VITALS: BP 140/84
--- NOTE | 2020-07-14 12:20 | NUR ---
NURSE NOTES:Skin/Wound assessment Sacral pressure ulcer stage 2 2.5x0.6x0.2 with pink granulation tissue and scant serosanguineous drainage edson wound skin dark but intact .Triad and Optifoam applied.Bilateral heels intact Optifoam applied and pillows to offload. Discussed with RN taking care of the patient.
--- NOTE | 2020-07-14 12:46 | NUR ---
NURSE NOTES: Spoke to and regarding Casodex and ok to renew. Order noted and carried out.
--- NOTE | 2020-07-14 12:59 | Pulmonology Progress Note ---
Subjective ROS Limited/Unobtainable: Yes Interval Events: somnolent Allergies: Coded Allergies: No Known Allergies (Unverified , 07/09/20) Objective Last 24 Hour Vital Signs Date Time Temp Pulse Resp B/P (MAP) Pulse Ox O2 Delivery O2 Flow Rate FiO2 07/14/20 08:20 158/96 07/14/20 07:20 95 17 98 Room Air 21 07/14/20 03:48 96.5 98 16 140/81 (100) 96 07/13/20 21:00 Room Air 07/13/20 20:00 96.9 108 16 143/84 (103) 97 07/13/20 15:53 97.2 97 18 145/89 (107) 98 Intake and Output 07/13/20 07/14/20 19:00 07:00 Intake Total 50 ml 900 ml Output Total 700 ml 1300 ml Balance -650 ml -400 ml Intake Oral 50 ml IV Total 900 ml Output Urine Total 700 ml 1300 ml # Bowel Movements 1 General Appearance: no acute distress HEENT: normocephalic, atraumatic, anicteric, mucous membranes moist Respiratory: no respiratory distress, no accessory muscle use, decreased breath sounds Cardiovascular: normal rate, regular rhythm Abdomen: soft, non tender, non distended Extremities: no edema, pedal pulses normal Skin: other - multiple tattoos BL upper arms and trunk Neurologic: abnormal gait, alert, oriented x 3, responsive, other - muscle strendgth BLE 1/ Laboratory Tests 07/14/20 04:30: Sodium Level 141, Potassium Level 4.4#, Chloride Level 110H, Carbon Dioxide Level 22, Anion Gap 9, Blood Urea Nitrogen 7, Creatinine 0.9, Estimat Glomerular Filtration Rate > 60, Glucose Level 119H, Uric Acid 6.1, Calcium Level 10.4H, Phosphorus Level 2.4L, Magnesium Level 1.7L, Total Bilirubin 0.8, Aspartate Amino Transf (AST/SGOT) 95H, Alanine Aminotransferase (ALT/SGPT) 27, Alkaline Phosphatase 152H, Total Protein 5.4L, Albumin 2.1L, Globulin 3.3, Albumin/Globulin Ratio 0.6L 07/14/20 08:25: White Blood Count 7.4, Red Blood Count 3.70L, Hemoglobin 11.4L, Hematocrit 33.6L , Mean Corpuscular Volume 91, Mean Corpuscular Hemoglobin 30.9, Mean Corpuscular Hemoglobin Concent 34.0, Red Cell Distribution Width 15.8H, Platelet Count 174, Mean Platelet Volume 7.1, Neutrophils (%) (Auto) 74.7, Lymphocytes (%) (Auto) 13.8L, Monocytes (%) (Auto) 8.8, Eosinophils (%) (Auto) 1.7, Basophils (%) (Auto) 1.0, Erythrocyte Sedimentation Rate 72H, C-Reactive Protein, Quantitative 7.4H Current Medications Medications (Trade) Dose Ordered Sig/Anitra Route PRN Reason Start Time Stop Time Status Last Admin Dose Admin Acetaminophen (Tylenol) 650 mg Q4H PRN ORAL fever 07/09/20 20:30 08/08/20 20:29 Albuterol/ Ipratropium (Albuterol/ Ipratropium) 3 ml Q4H PRN HHN Shortness of Breath 07/13/20 17:30 07/18/20 17:29 Atorvastatin Calcium (Lipitor) 40 mg BEDTIME ORAL 07/10/20 21:00 10/08/20 20:59 Bicalutamide (Casodex) 50 mg DAILY ORAL 07/15/20 09:00 07/20/20 08:59 Calcitonin [place] (Miacalcin) 1 sprays DAILY NASAL 07/11/20 20:00 10/09/20 19:59 07/14/20 08:23 Cefepime HCl 2 gm/ Dextrose 110 ml @ 220 mls/hr EVERY 12 HOURS IV 07/09/20 21:00 07/16/20 20:59 07/14/20 08:17 Dextrose/ Electrolytes 1,000 ml @ 75 mls/hr [id number] IV 07/13/20 14:00 08/12/20 13:59 07/14/20 03:17 Gabapentin (Neurontin) 400 mg QID ORAL 07/10/20 09:00 08/09/20 08:59 07/14/20 08:21 Levothyroxine Sodium (Synthroid) 50 mcg ACBREAKFAST ORAL 07/10/20 06:30 08/09/20 06:29 07/12/20 05:41 Lisinopril (ZestriL) 10 mg DAILY ORAL 07/10/20 09:00 08/09/20 08:59 07/14/20 08:20 Ondansetron HCl (Zofran) 4 mg Q6H PRN IVP Nausea & Vomiting 07/09/20 20:30 08/08/20 20:29 Pantoprazole (Protonix) 40 mg DAILY ORAL 07/10/20 09:00 08/09/20 08:59 07/14/20 08:21 Polyethylene Glycol (Miralax) 17 gm DAILYPRN PRN ORAL Constipation 07/09/20 20:30 08/08/20 20:29 Rivaroxaban (Xarelto) 20 mg DAILY ORAL 07/10/20 09:00 10/08/20 08:59 07/14/20 08:21 Tamsulosin HCl (Flomax) 0.4 mg DAILY ORAL 07/10/20 09:00 08/09/20 08:59 07/14/20 08:21 Temazepam (Restoril) 15 mg HSPRN PRN ORAL Insomnia 07/09/20 20:30 07/16/20 20:29 Assessment/Plan Problems: (1) Pyelonephritis (2) Hypokalemia (3) Protein-calorie malnutrition, severe (4) Prostate cancer (5) History of hypertension Assessment/Plan K and PHos supplement iv abx, on Ceftriaxone monitor BP symptomatic treatment dvt prophylaxis. Judy Oliver MD Jul 14, 2020 12:59
--- NOTE | 2020-07-14 13:29 | Diagnostic Imaging Report ---
Indication: Dyspnea Technique: One view of the chest Comparison: 07/13/2020 Findings: Better inspiration currently. Again demonstrated is right pleural fluid, right mid and lower lung infiltrates, probably unchanged accounting for differences in degree of inspiration. The heart size is normal. There is a right jugular port catheter again demonstrated. Impression: Unchanged, over one day, findings as above.
[2020-07-14] MEDS ORDERED: Sodium Phosphate 30 MM in NS 275 ML IV SCH (14:30)
--- NOTE | 2020-07-14 14:45 | Infectious Diseases Prog Note ---
Assessment/Plan Assessment: COVID19 neg x (07/09 rapid COVID PCR neg) -CXR: Patchy right basilar opacities which may represent atelectasis however pneumonia notexcluded. Clinical correlation and followup recommended. Sepsis UTI -u/a wbc 20-30, nit neg, leuk +2; ucx >100k PsA ([place]) -Bcx NTD Afebrile No leukocytosis Hypernatremia Hypokalemia HTN BPH GERD HLD paraplegia hypothyroidism metastatic Prostate [place] RESIDENTIAL resident ([facility]) Plan: -Continue empiric Cefepime #6/7 for PsA UTI -upon discharge, can be transition to PO Levaquin 500mg qd -07/12 SP IV Vancomycin #2 -07/09 SP Meropenem x1 -f/u cx -Monitor CBC/CMP, temperatures -aspiration precautions Thank you for consulting [facility]. Will continue to follow along with you. Discussed with RN. Subjective Allergies: Coded Allergies: No Known Allergies (Unverified , 07/09/20) afebrile no leukocytosis Objective Last 24 Hour Vital Signs Date Time Temp Pulse Resp B/P (MAP) Pulse Ox O2 Delivery O2 Flow Rate FiO2 07/14/20 08:20 158/96 07/14/20 08:00 97.8 102 16 158/96 (116) 98 07/14/20 07:20 95 17 98 Room Air 21 07/14/20 03:48 96.5 98 16 140/81 (100) 96 07/13/20 21:00 Room Air 07/13/20 20:00 96.9 108 16 143/84 (103) 97 07/13/20 15:53 97.2 97 18 145/89 (107) 98 Height (Feet): 5 Height (Inches): 9.00 Weight (Pounds): 149 Laboratory Tests Test 07/14/20 04:30 07/14/20 08:25 Sodium Level 141 MMOL/L (136-145) Potassium Level 4.4 MMOL/L (3.5-5.1) # Chloride Level 110 MMOL/L (98-107) H Carbon Dioxide Level 22 MMOL/L (21-32) Anion Gap 9 mmol/L (5-15) Blood Urea Nitrogen 7 mg/dL (7-18) Creatinine 0.9 MG/DL (0.55-1.30) Estimat Glomerular Filtration Rate > 60 mL/min (>60) Glucose Level 119 MG/DL (74-106) H Uric Acid 6.1 MG/DL (2.6-7.2) Calcium Level 10.4 MG/DL (8.5-10.1) H Phosphorus Level 2.4 MG/DL (2.5-4.9) L Magnesium Level 1.7 MG/DL (1.8-2.4) L Total Bilirubin 0.8 MG/DL (0.2-1.0) Aspartate Amino Transf (AST/SGOT) 95 U/L (15-37) H Alanine Aminotransferase (ALT/SGPT) 27 U/L (12-78) Alkaline Phosphatase 152 U/L (46-116) H Total Protein 5.4 G/DL (6.4-8.2) L Albumin 2.1 G/DL (3.4-5.0) L Globulin 3.3 g/dL Albumin/Globulin Ratio 0.6 (1.0-2.7) L White Blood Count 7.4 K/UL (4.8-10.8) Red Blood Count 3.70 M/UL (4.70-6.10) L Hemoglobin 11.4 G/DL (14.2-18.0) L Hematocrit 33.6 % (42.0-52.0) L Mean Corpuscular Volume 91 FL (80-99) Mean Corpuscular Hemoglobin 30.9 PG (27.0-31.0) Mean Corpuscular Hemoglobin Concent 34.0 G/DL (32.0-36.0) Red Cell Distribution Width 15.8 % (11.6-14.8) H Platelet Count 174 K/UL (150-450) Mean Platelet Volume 7.1 FL (6.5-10.1) Neutrophils (%) (Auto) 74.7 % (45.0-75.0) Lymphocytes (%) (Auto) 13.8 % (20.0-45.0) L Monocytes (%) (Auto) 8.8 % (1.0-10.0) Eosinophils (%) (Auto) 1.7 % (0.0-3.0) Basophils (%) (Auto) 1.0 % (0.0-2.0) Erythrocyte Sedimentation Rate 72 MM/HR (0-20) H C-Reactive Protein, Quantitative 7.4 mg/dL (0.00-0.90) H Current Medications Medications (Trade) Dose Ordered Sig/Anitra Route PRN Reason Start Time Stop Time Status Last Admin Dose Admin Acetaminophen (Tylenol) 650 mg Q4H PRN ORAL fever 07/09/20 20:30 08/08/20 20:29 Albuterol/ Ipratropium (Albuterol/ Ipratropium) 3 ml Q4H PRN HHN Shortness of Breath 07/13/20 17:30 07/18/20 17:29 Atorvastatin Calcium (Lipitor) 40 mg BEDTIME ORAL 07/10/20 21:00 10/08/20 20:59 Bicalutamide (Casodex) 50 mg DAILY ORAL 07/15/20 09:00 07/20/20 08:59 Calcitonin [place] (Miacalcin) 1 sprays DAILY NASAL 07/11/20 20:00 10/09/20 19:59 07/14/20 08:23 Cefepime HCl 2 gm/ Dextrose 110 ml @ 220 mls/hr EVERY 12 HOURS IV 07/09/20 21:00 07/16/20 20:59 07/14/20 08:17 Dextrose/ Electrolytes 1,000 ml @ 75 mls/hr [id number] IV 07/13/20 14:00 08/12/20 13:59 07/14/20 03:17 Gabapentin (Neurontin) 400 mg QID ORAL 07/10/20 09:00 08/09/20 08:59 07/14/20 08:21 Levothyroxine Sodium (Synthroid) 50 mcg ACBREAKFAST ORAL 07/10/20 06:30 08/09/20 06:29 07/12/20 05:41 Lisinopril (ZestriL) 10 mg DAILY ORAL 07/10/20 09:00 08/09/20 08:59 07/14/20 08:20 Ondansetron HCl (Zofran) 4 mg Q6H PRN IVP Nausea & Vomiting 07/09/20 20:30 08/08/20 20:29 Pantoprazole (Protonix) 40 mg DAILY ORAL 07/10/20 09:00 08/09/20 08:59 07/14/20 08:21 Polyethylene Glycol (Miralax) 17 gm DAILYPRN PRN ORAL Constipation 07/09/20 20:30 08/08/20 20:29 Rivaroxaban (Xarelto) 20 mg DAILY ORAL 07/10/20 09:00 10/08/20 08:59 07/14/20 08:21 Tamsulosin HCl (Flomax) 0.4 mg DAILY ORAL 07/10/20 09:00 08/09/20 08:59 07/14/20 08:21 Temazepam (Restoril) 15 mg HSPRN PRN ORAL Insomnia 07/09/20 20:30 07/16/20 20:29 Bonnie Nixon M.D. Jul 14, 2020 14:45
--- NOTE | 2020-07-14 15:40 | NUR ---
*-*DISCHARGE PLANNED*-* PATIENT HAS BEEN ACCEPTED AND WILL BE DISCHARGED TO: [facility] P: [phone] FOR NURSE TO NURSE REPORT ROOM# 25 [facility] GOUGER SET FOR 5PM S/W KELVIN [id number] S/W PATIENT LUMP MAKER DENISE, WHO IS IN AGREEMENT WITH DC PLAN.
[2020-07-14 16:00] VITALS: BP 145/78
--- NOTE | 2020-07-14 16:00 | NUR ---
NURSE NOTES: Called [facility] to give report ([phone]) s/w Julita caregiver. assigned room: 25. I will f/u as needed.
--- NOTE | 2020-07-14 16:52 | Internal Med Progress Note ---
Subjective Date of Service: Jul 14, 2020 Physician Name Rojas,Rajan Attending Physician Mark Bonilla MD Current Medications Medications (Trade) Dose Ordered Sig/Anitra Route PRN Reason Start Time Stop Time Status Last Admin Dose Admin Acetaminophen (Tylenol) 650 mg Q4H PRN ORAL fever 07/09/20 20:30 08/08/20 20:29 Albuterol/ Ipratropium (Albuterol/ Ipratropium) 3 ml Q4H PRN HHN Shortness of Breath 07/13/20 17:30 07/18/20 17:29 Atorvastatin Calcium (Lipitor) 40 mg BEDTIME ORAL 07/10/20 21:00 10/08/20 20:59 Bicalutamide (Casodex) 50 mg DAILY ORAL 07/15/20 09:00 07/20/20 08:59 Calcitonin [place] (Miacalcin) 1 sprays DAILY NASAL 07/11/20 20:00 10/09/20 19:59 07/14/20 08:23 Cefepime HCl 2 gm/ Dextrose 110 ml @ 220 mls/hr EVERY 12 HOURS IV 07/09/20 21:00 07/16/20 20:59 07/14/20 08:17 Dextrose/ Electrolytes 1,000 ml @ 75 mls/hr [id number] IV 07/13/20 14:00 08/12/20 13:59 07/14/20 03:17 Gabapentin (Neurontin) 400 mg QID ORAL 07/10/20 09:00 08/09/20 08:59 07/14/20 08:21 Levothyroxine Sodium (Synthroid) 50 mcg ACBREAKFAST ORAL 07/10/20 06:30 08/09/20 06:29 07/12/20 05:41 Lisinopril (ZestriL) 10 mg DAILY ORAL 07/10/20 09:00 08/09/20 08:59 07/14/20 08:20 Ondansetron HCl (Zofran) 4 mg Q6H PRN IVP Nausea & Vomiting 07/09/20 20:30 08/08/20 20:29 Pantoprazole (Protonix) 40 mg DAILY ORAL 07/10/20 09:00 08/09/20 08:59 07/14/20 08:21 Polyethylene Glycol (Miralax) 17 gm DAILYPRN PRN ORAL Constipation 07/09/20 20:30 08/08/20 20:29 Rivaroxaban (Xarelto) 20 mg DAILY ORAL 07/10/20 09:00 10/08/20 08:59 07/14/20 08:21 Tamsulosin HCl (Flomax) 0.4 mg DAILY ORAL 07/10/20 09:00 08/09/20 08:59 07/14/20 08:21 Temazepam (Restoril) 15 mg HSPRN PRN ORAL Insomnia 07/09/20 20:30 07/16/20 20:29 Allergies: Coded Allergies: No Known Allergies (Unverified , 07/09/20) ROS Limited/Unobtainable: Yes Subjective 75 YO M admitted for generalized weakness and poor PO intake. Now UTI and sepsis. Cover for Int Jimmy- Dr Bonilla Objective Last Vital Signs Date Time Temp Pulse Resp B/P (MAP) Pulse Ox O2 Delivery O2 Flow Rate FiO2 07/14/20 16:00 97.5 95 16 145/78 (100) 98 07/14/20 09:00 Room Air 07/14/20 07:20 21 Laboratory Tests Test 07/14/20 04:30 07/14/20 08:25 Sodium Level 141 MMOL/L (136-145) Potassium Level 4.4 MMOL/L (3.5-5.1) # Chloride Level 110 MMOL/L (98-107) H Carbon Dioxide Level 22 MMOL/L (21-32) Anion Gap 9 mmol/L (5-15) Blood Urea Nitrogen 7 mg/dL (7-18) Creatinine 0.9 MG/DL (0.55-1.30) Estimat Glomerular Filtration Rate > 60 mL/min (>60) Glucose Level 119 MG/DL (74-106) H Uric Acid 6.1 MG/DL (2.6-7.2) Calcium Level 10.4 MG/DL (8.5-10.1) H Phosphorus Level 2.4 MG/DL (2.5-4.9) L Magnesium Level 1.7 MG/DL (1.8-2.4) L Total Bilirubin 0.8 MG/DL (0.2-1.0) Aspartate Amino Transf (AST/SGOT) 95 U/L (15-37) H Alanine Aminotransferase (ALT/SGPT) 27 U/L (12-78) Alkaline Phosphatase 152 U/L (46-116) H Total Protein 5.4 G/DL (6.4-8.2) L Albumin 2.1 G/DL (3.4-5.0) L Globulin 3.3 g/dL Albumin/Globulin Ratio 0.6 (1.0-2.7) L White Blood Count 7.4 K/UL (4.8-10.8) Red Blood Count 3.70 M/UL (4.70-6.10) L Hemoglobin 11.4 G/DL (14.2-18.0) L Hematocrit 33.6 % (42.0-52.0) L Mean Corpuscular Volume 91 FL (80-99) Mean Corpuscular Hemoglobin 30.9 PG (27.0-31.0) Mean Corpuscular Hemoglobin Concent 34.0 G/DL (32.0-36.0) Red Cell Distribution Width 15.8 % (11.6-14.8) H Platelet Count 174 K/UL (150-450) Mean Platelet Volume 7.1 FL (6.5-10.1) Neutrophils (%) (Auto) 74.7 % (45.0-75.0) Lymphocytes (%) (Auto) 13.8 % (20.0-45.0) L Monocytes (%) (Auto) 8.8 % (1.0-10.0) Eosinophils (%) (Auto) 1.7 % (0.0-3.0) Basophils (%) (Auto) 1.0 % (0.0-2.0) Erythrocyte Sedimentation Rate 72 MM/HR (0-20) H C-Reactive Protein, Quantitative 7.4 mg/dL (0.00-0.90) H Intake and Output 07/13/20 07/14/20 19:00 07:00 Intake Total 50 ml 900 ml Output Total 700 ml 1300 ml Balance -650 ml -400 ml Intake Oral 50 ml IV Total 900 ml Output Urine Total 700 ml 1300 ml # Bowel Movements 1 Objective Objective GENERAL: awake and responsive, but very chronically ill-appearing. HEAD AND NECK: Pupils are equal and reactive to light. Extraocular movements are intact. Neck was supple. No JVD. LUNGS: Good air entry. No wheezing or rales. Decreased air in bases. ABDOMEN: Soft, nondistended, and nontender. Positive bowel sounds. EXTREMITIES: No cyanosis, clubbing or edema. left ankle brace noted. NEUROLOGIC: Cranial nerves II through XII grossly intact. The patient is moving upper extremities. Lower extremities weaker 4/5 strength. SKIN: He has a tattoo on the upper extremity as well as trunk area. Assessment/Plan Assessment/Plan Assessment/Plan Assessment/Plan Assessment/Plan ASSESSMENT: 1. urinary tract infection=pseudomonas aeruginosa 2. Hypokalemia. 3. Severe dehydration and prerenal azotemia. 4. Metastatic prostate cancer. 5. Gastroesophageal reflux disease. 6. Paraplegia. 7. Hypertension. 8. BPH. 9. Hypothyroidism. 10. Dyslipidemia. 11. Hypokalemia PLAN: Monitor laboratory as well as culture. S/P vancomycin; continue cefepime IV; discharge on oral levaquin Code status is Full Code. DVT prophylaxis: Xarelto KCl supplements. IV fluid. PT mobility. ID=Dr Dennis Pulmonary/critical care=DR Oliver Discharge to assisted living today Rajan Rojas MD Jul 14, 2020 16:52
--- NOTE | 2020-07-14 17:10 | NUR ---
NURSE NOTES: Given report to ambulance crew. IV removed, as well as Condom cath prior to d/c. all belongings given to ambulance crew. Also called and left message to [employer]portfolio [employer] to inform of the patient's d/c. Also called Dianna at [phone] to request if she knows a family member so we can inform of the transfer. per dianna pt doesn't have family. [facility] is in charge of the patient. Dr. Rojas is aware of the above. I will f/u as needed.
[2020-07-15] MEDS ORDERED: Bicalutamide 50mg tab ORAL SCH (09:00)
--- NOTE | 2020-07-16 08:46 | Discharge Summary ---
Discharge Summary Discharge Summary _ DATE OF ADMISSION: 07/09/2020 DATE OF DISCHARGE: 07/14/2020 DISCHARGED BY: Dr. Bonilla REASON FOR ADMISSION: 75 years old frail, cachectic male with past medical history of metastatic prostate cancer, hypertension, hypothyroidism, BPH, GERD, paraplegia, dyslipidemia, presented to the emergency department from the assisted-living with generalized weakness for 4 days and decreased oral intake for 2 days. No reported fever or chills. No nausea , vomiting or diarrhea. No chest pain , no shortness of breath. No headache. Upon initial evaluation in emergency department patient was found to have potassium of 2.4. Lactic acid 3.2. Calcium 12.6. Urinalysis it was suggestive of UTI . Rapid COVID-19 was negative. Patient admitted to the hospitalist with hypokalemia and sepsis secondary to UTI. CONSULTANTS: pulmonary /critical care Dr. Oliver ID specialist Dr. Nixon rolled ham lacer Dr. Deng HOSPITAL COURSE: Patient admitted initially to monitored floor. Patient started on IV fluids with potassium supplement and broad-spectrum antibiotics. Blood cultures were negative . Urine culture revealed Pseudomonas. Antibiotic regimen was optimized as per ID specialist recommendation. Supplemental oxygen was on board as needed to keep pulse oximetry above 92% Pulse oximetry remained stable on room air. Chest x-ray revealed evidence of atelectasis. Venous duplex bilateral lower extremity revealed no evidence of acute DVT. Patient was continuing Xarelto as preadmission. Renal parameters and electrolytes were closely monitored. Electrolytes corrected as needed. Patient noted to have hypercalcemia, which was most likely due to metastatic prostate cancer , and was more pronounced when corrected for hypoalbuminemia. Patient received pamidronate 1 dose. and started on nasal calcitonin. Potassium was further replaced. Other electrolytes also were replaced. Prior to discharge potassium 4.4. Casodex and Flomax continued, Blood pressure was managed with CHAGO inhibitor , remained stable. Aspiration precaution maintained. GI prophylaxis provided. TSH within normal limits. Current dose of levothyroxine continued Protein supplements provided as per registered dietitian recommendation. LFT trending down: AST from 137 down to 95; ALT remained stable; total bilirubin from 1.6 down to 0.8 . Patient clinically stabilized and was ready for transfer back to assisted living for continuation of care. FINAL DIAGNOSES: Sepsis secondary to UTI Pseudomonas UTI Hypokalemia-resolved Severe dehydration with prerenal azotemia Metastatic prostate cancer Hypertension Dyslipidemia BPH Paraplegia Hypothyroidism GERD Severe protein calorie malnutrition Elevated LFT Hypercalcemia Atelectasis DISCHARGE MEDICATIONS: See Medication Reconciliation list. DISCHARGE INSTRUCTIONS: Patient was discharged to the assisted living facility. Follow up with medical doctor at the facility. I have been assigned to dictate discharge summary for this account. Vita Veliz NP Jul 16, 2020 08:45
== END 2020-07-14 17:10 | DRG 871 ==
LOC: EDBD 16:31 → EMR 17:09 → 2E 18:55 → EDBEDREQ 19:53 → 3E 07-11 17:47
DX: A41.9 Sepsis, unspecified organism (principal); E43 Unspecified severe protein-calorie malnutrition; J18.9 Pneumonia, unspecified organism; N39.0 Urinary tract infection, site not specified; G82.20 Paraplegia, unspecified; N12 Tubulo-interstitial nephritis, not specified as acute or chronic; J98.11 Atelectasis; E87.6 Hypokalemia; E86.0 Dehydration; K21.9 Gastro-esophageal reflux disease without esophagitis; I10 Essential (primary) hypertension; E03.9 Hypothyroidism, unspecified; E83.52 Hypercalcemia; B96.5 Pseudomonas (aeruginosa) (mallei) (pseudomallei) as the cause of diseases classified elsewhere; Z85.46 Personal history of malignant neoplasm of prostate; N40.0 Benign prostatic hyperplasia without lower urinary tract symptoms; E78.5 Hyperlipidemia, unspecified; Z79.01 Long term (current) use of anticoagulants; R79.89 Other specified abnormal findings of blood chemistry; Z68.22 Body mass index [BMI] 22.0-22.9, adult
CPT/HCPCS: 36415; 71045; 80048; 80053; 81003; 82248; 82378; 82550; 82553; 82607; 82728; 82746; 82977; 83036; 83519; 83605; 83615; 83735; 83970; 84100; 84153; 84154; 84439; 84443; 84484; 84550; 85025; 85379; 85651; 86140; 87040; 87081; 87086; 87181; 93005; 93970; 94664; 96361; 96365; 96368; 99285; C9399; J2430; J7030; J7620; J8499; U0002